=== PATIENT | male | born 1990 | race Caucasian/White ===

== ENCOUNTER → 2016-10-25 | Outpatient (CLI) | payer MEDICAID ==
[~2016-10-25] MED LIST: ALEV220T26 PO; CELE-19 PO; DICL75TA PO; GABA300C3 PO; HYDR1TAB97 PO; ROBA750T4 PO; TYLE325T5 PO; [UNRECOGNIZED DRUG - OTHER] PO
--- NOTE | 2016-10-27 23:20 | ECWPNPC ---
PATIENT NAME: GAVI LIGHT : 1990 GENDER: MALE VISIT DATE: 10/25/2016 DISCHARGE DATE: 10/25/16 1226 VISIT LOCKED DATE TIME: PHYSICIAN: RENETTA SHETH PHYSICIAN PAGER NO: [phone] RESOURCE: RENETTA SHETH REASON FOR APPOINTMENT 1. LOW BACK PAIN HISTORY OF PRESENT ILLNESS HISTORY OF PRESENT ILLNESS: PAIN THE PATIENT DESCRIBES THE PAIN... 26 YEAR OLD MALE PATIENT WITH HISTORY OF CHRONIC LOW BACK PAIN. PATIENT DESCRIBES THE PAIN . PATIENT RECEIVED A TRANSFORAMINAL ON 10/08/16 AND STATES THAT HE HAS ABOUT 50% RELIEF FOR ABOUT 10 DAYS BUT THE PAIN IS SLOWLY STARTING TO RETURN. PATIENT REPORTS DOING A LOT OF SHOVELING WHICH INCREASES THE PAIN IN HIS LOWER BACK. MR. LIGHT IS CURRENTLY USING TIZANIDINE WELL AT NIGHT FOR THE MUSCLE SPASMS WHICH HE STATES ONLY WORKS WHILE USING A PAIN MEDICATION. MR. LIGHT STATES THAT LAYING DOWN HELPS TO RELIEVE THE PAIN IN THE LOWER BACK. PATIENT DENIES UNEXPLAINABLE WEIGHT LOSS, FEVER, CHILLS, NEW CHANGES ON HIS URINARY OR BOWEL CONTROL. FALL RISK SCREENING: SCREENING :NO FALLS IN THE PAST YEAR CURRENT MEDICATIONS TAKING TIZANIDINE HCL 4 MG TABLET 1 TABLET NEEDED ORALLY FOR SPAMSM AND PAIN BEFORE BEDTIME CAN REPEAT IN 4 HRS MDD2, NOTES: 10-07-2016 2200 TAKING HYDROCODONE-ACETAMINOPHEN 7.5-325 MG TABLET 1 TABLET NEEDED ORALLY FOR PAIN EVERY 6 HRS NEEDED MDD4, NOTES: 10-08-16 1030 NOT-TAKING METHOCARBAMOL 750 MG TABLET 1-2 TABLET ORALLY EVERY 8 HRS FOR MUSCLE SPASM NOT-TAKING TYLENOL 325 MG TABLET 1 TABLET NEEDED ORALLY EVERY 6 HRS MEDICATION LIST REVIEWED AND RECONCILED WITH THE PATIENT PAST MEDICAL HISTORY BACK PAIN ALLERGIES N.K.D.A. SURGICAL HISTORY NONE FAMILY HISTORY NO FAMILY HISTORY DOCUMENTED. SOCIAL HISTORY TOBACCO USE ARE YOU A:CURRENT SMOKER HOW MANY CIGARETTES A DAY DO YOU SMOKE?6-10 HOW SOON AFTER YOU WAKE UP DO YOU SMOKE YOUR FIRST CIGARETTE?AFTER 60 MIN HOW OFTEN DO YOU SMOKE CIGARETTES?EVERY DAY PATIENT COUNSELED ON THE DANGERS OF TOBACCO USE AND URGED TO QUIT: PT COUNCELLED ON THE IMPORTANCE OF QUITTING. HE PLANS ON GETTING A NEW PCP AND DISCUSS OPTIONS WITH THIS PERSON ARE YOU INTERESTED IN QUITTING?THINKING ABOUT QUITTING LEARNING BARRIERS / SPECIAL NEEDS ORIENTED TO PLAN OF CARE: PATIENT, PAIN MANAGEMENT PATIENT, ORIENTED TO PLAN OF CARE: PATIENT, PAIN MANAGEMENT PATIENT. NEW PATIENT PAIN DIARY TODAY'S VISITNOTES FROM 0-10, WHAT LEVEL IS YOUR PAIN TODAY?0 PAIN CLINIC PFS, CLERGY, PUBLIC HEALTH REFERRALS PFS REFERRAL NEEDED?NO CLERGY REFERRAL NEEDED?NO PUBLIC HEALTH REFERRAL NEEDED?NO WAS THE PROVIDER NOTIFIED OF ANY PERTINENT INFO?NO PFS REFERRAL NEEDED?NO CLERGY REFERRAL NEEDED?NO PUBLIC HEALTH REFERRAL NEEDED?NO WAS THE PROVIDER NOTIFIED OF ANY PERTINENT INFO?NO HOSPITALIZATION/MAJOR DIAGNOSTIC PROCEDURE NO HOSPITALIZATION HISTORY. REVIEW OF SYSTEMS CONSTITUTIONAL: ANY CHANGE IN YOUR MEDICAL CONDITION? NO . CHILLS NO . FEVER NO . INFECTION: DO YOU HAVE NEW INFECTIONS? NO . DO YOU HAVE HISTORY OF MRSA? NO . MUSCULOSKELETAL: ANY NEW PATTERNS OF PAIN OR NUMBNESS? YES. PAIN HAS BEEN GETTING WORSE SINCE HE HAS BEEN SHOVELING AND RAN OUT OF PAIN MED. . GASTROENTEROLOGY: ANY NEW CHANGE IN BOWEL CONTROL? NO . GENITOURINARY: ANY NEW CHANGE IN BLADDER CONTROL? NO . IS THERE A CHANCE YOU COULD BE ? NO . HEMATOLOGY/LYMPH: DO YOU TAKE ANY BLOOD THINNERS? (FOR EXAMPLE- COUMADIN, PLAVIX, AGGRENOX, PLATEL, PRADAXA, OR XARELTO) NO . WHEN WAS YOUR LAST DOSE? DATE: TIME: . NEUROLOGY: HAVE YOU FALLEN IN THE PAST 6 MONTHS? YES,FELL APPROX. 1 MONTH AGO,SEEN IN ER , XRAY DONE. . ANY NEW EXTREMITY NUMBNESS OR WEAKNESS? NO . CARDIOLOGY: DO YOU HAVE A PACEMAKER OR DEFIBRILLATOR? NO . RESPIRATORY: HAVE YOU BEEN SICK IN THE PAST WEEK? YES, COUGHING DARK GREEN MUCUS X 1 WEEK. NO FEVER . FEVER NO . FLU LIKE SYMPTOMS? NO . COUGH YES, PRODUCTIVE MUCUS GREEN NO TREATMENT . INTEGUMENTARY: DO YOU HAVE ANY RASHES OR OPEN SORES? NO . ALLERGIC/IMMUNO: ARE YOU ALLERGIC TO SHELLFISH OR IV DYE? NO . ANY NEW ALLERGIES? NO . PSYCHIATRIC: DO YOU HAVE THOUGHTS OF HURTING YOURSELF OR SOMEONE ELSE? NO . ARE YOU ABUSED, NEGLECTED, OR IN AN UNSAFE ENVIRONMENT? NO . ENDOCRINOLOGY: ARE YOU DIABETIC? NO . OTHER: DO YOU NEED ANY PRESCRIPTIONS? YES, HYDROCODONE . IF YES, PLEASE LIST: ____ . ANY NEW PROBLEMS WITH YOUR MEDICATIONS? NO . WHEN DID YOU LAST EAT? ____ . WHEN DID YOU LAST DRINK? ____ . WHAT DID YOU LAST DRINK? ____ . NAME OF PERSON DRIVING YOU HOME? ____ . DO YOU HAVE ANY OTHER QUESTIONS OR CONCERNS HAD MIGRAINE FOR THE 1ST THREE DAYS AFTER THE LAST PROCEDURE. . REVIEWED BY: PROVIDER: RENETTA SHETH MD . VITAL SIGNS WT 240 LBS, HT 71 1/2, BMI 33.00 INDEX, BP 137/71 MM HG, HR 78 /MIN, RR 16 /MIN, TEMP 96.8 F, OXYGEN SAT % 96, NA INITIALS TL 1039. EXAMINATION : PATIENT IS ALERT O X 3 AND COOPERATIVE. PATIENT AMBULATES WITH AN ANTALGIC GAIT. PATIENT IS VERY STIFF AND GUARDS HIS BACK. LEG LEFT IS WEAKER IN STRENGTH, FLEXION AND EXTENSION. TENDERNESS IN THE LUMBAR PARASPINAL MUSCLE GROUP. TENDERNESS IN THE SACROILIAC PARASPINAL MUSCLE GROUP. BANDS OF TISSUE, RESTRICTION OF MOVEMENT, AND PRESENCE OF TRIGGER POINTS AT THE LOWER BACK AREA. MRI OF THE LUMBAR SPINE DONE ON 08-23-2016 SHOWS A LARGE CENTRAL DISC PROTRUSION AT L5-S1 AND A TINY CENTRAL DISC PROTRUSION AT L4-L5. 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 CLINICAL NOTES: PRINTED INFORMATION GIVEN ON CYMBALTA AND GABAPENTIN. OTHERS NOTES: WE DISCUSSED SEVERAL ISSUES WITH MR. LIGHT'S PAIN MANAGEMENT CASE. AT THIS TIME THE PATIENT WILL START GABAPENTIN AT NIGHT TO HELP WITH NEUROPATHIC PAIN. PATIENT WILL ALSO START TO USE CYMBALTA FOR PAIN MANAGEMENT WELL. WE DISCUSSED THE PATIENT URINE TOXICOLOGY REPORT TODAY AND AT THIS TIME NARCOTICS WILL NOT BE PRESCRIBED. PATIENT DID BRING TIZANIDINE IN ITS ORIGINAL BOTTLE TO TODAY'S VISIT. WE DISCUSSED INTERVENTIONS THAT MAY HELP THE PATIENT. DUE TO THE RESTRICTION OF MOVEMENT AND PRESENCE OF TRIGGER POINTS IN THE LOWER BACK THE PATIENT MAY BENEFIT FROM A TRIGGER POINT INJECTION. IF THE TRIGGER POINT INJECTION DOES NOT GIVE ADEQUATE RELIEF THE PATIENT IS ALSO A GOOD CANDIDATE FOR A LUMBAR FACET DIAGNOSTIC BLOCK TO CONSIDER RADIOFREQUENCY. WE DISCUSSED THE RISKS, BENEFITS, AND ALTERNATIVES TO THE TRIGGER POINT INJECTIONS AND THE PATIENT WOULD LIKE TO PROCEED AT THIS TIME. INSTRUCTIONS WERE GIVEN, QUESTIONS WERE ANSWERED, PATIENT REPORTS UNDERSTANDING AND AGREES WITH THE PLAN. I, FRANCA HENDRICKS, DOCUMENTED THE ABOVE INFORMATION ACTING A SCRIBE FOR DR. SHETH. I HAVE REVIEWED THE ABOVE DOCUMENT, WRITTEN BY FRANCA PEDRAZA AND I VERIFY THAT IT IS ACCURATE. PROCEDURE CODES FA211 ESTABILISHED PATIENT [facility] FACILITY CHARGE G8427 DOC MEDS VERIFIED W/PT OR RE G8730 PAIN ASSESS POS TOOL F/U PLAN DOC FOLLOW UP TPI AFTER APPROVAL ELECTRONICALLY SIGNED BY RENETTA SHETH MD ON 10/27/2016 AT 09:03 AM EST DISCLAIMER : THIS IS A VISIT SUMMARY EXTRACTED FROM THE [employer] CHART. IT IS NOT A COPY OF THE [employer] PROGRESS NOTE. CORETTA
== END ==
LOC: M PAIN 10:40
PROVIDERS: ATTEND Anesthesiology
DX: M79.1 Myalgia (principal); M51.17 Intervertebral disc disorders with radiculopathy, lumbosacral region; M47.816 Spondylosis without myelopathy or radiculopathy, lumbar region; M47.817 Spondylosis without myelopathy or radiculopathy, lumbosacral region; Z79.891 Long term (current) use of opiate analgesic; F17.210 Nicotine dependence, cigarettes, uncomplicated

== ENCOUNTER 2016-11-03 11:51 | Emergency (ER) | payer MEDICAID ==
--- NOTE | 2016-11-03 14:40 | EDDOCDS ---
Physician Documentation [facility] Name: Jordin Dodson Age: 26 yrs Sex: Male : 1990 Arrival Date: 11/03/2016 Time: 11:51 Bed PD Private MD: Hamlet Tidwell W Disposition: 11/03/16 14:31 Discharged to Home/Self Care. Impression: Cutaneous abscess of abdominal wall - 1.3 CM, Encounter for issue of repeat prescription. - Condition is Stable. - Discharge Instructions: Abscess, Medicine Refill at the Emergency Department. - Prescriptions for Hydrocodone- Acetaminophen 5-325 mg Oral Tablet - take 1 tablet by ORAL route every 6 hours As needed MDD: 4 tabs; 16 tablet. Doxycycline Monohydrate 100 mg Oral Tablet - take 1 tablet by ORAL route every 12 hours for 10 days; 20 tablet. - Medication Reconciliation, Local Pharmacy Hours form. - Follow up: Emergency Department; When: As needed. Follow up: Hamlet Tidwell; When: Call to arrange an appointment; Reason: Wound/Symptom Recheck, Recheck today's complaints, Worsening of conditions, Continuance of care. - Problem is an ongoing problem. - Symptoms are unchanged. Historical: - Allergies: No known drug Allergies; - Home Meds: 1. tizanidine 4 mg oral tab twice a day 2. gabapentin 300 mg Oral cap daily - PMHx: Low back pain; ruptured disc L3-5; - PSHx: none; - Social history: Smoking status: Patient uses tobacco products, light tobacco smoker. No barriers to communication noted, The patient speaks fluent Lao, Speaks appropriately for age. - Family history: Not pertinent. - : The pt / caregiver states he / she is not on anticoagulants. Home medication list is obtained from the patient. - Exposure Risk Screening:: None identified. Vital Signs: 11/03 11:53 BP 121 / 79; Pulse 74; Resp 18 S; Temp 98.6(O); Pulse Ox 99% on R/A; Weight 104.33 kg / gr2 230.01 lbs (R); Height 6 ft. 1 in. (185.42 cm) (R); Pain 8/10; 14:34 BP 155 / 84 RA Sitting (auto/lg); Pulse 57; Resp 18; Temp 96.6(T); Pulse Ox 100% on rs6 R/A; Pain 06/26; 11:53 Body Mass Index 30.34 (104.33 kg, 185.42 cm) gr2 MDM: 13:15 US Abd Limited: suprapubic area Ordered. EDMS 14:11 Financial registration complete. lg Signatures: Dispatcher [employer] EDMS Emilie Kinney, Reg Reg lg Chelle MaRN RN ck1 Aditi Childs RN RN cj Vincent Cassidy, PA-C PA-C cc10 MTDD
--- NOTE | 2016-11-03 14:40 | EDDOCDS ---
Nurse's Notes [facility] Name: Jordin Dodson Age: 26 yrs Sex: Male : 1990 Arrival Date: 11/03/2016 Time: 11:51 Bed PD Private MD: Hamlet Tidwell W Diagnosis: Cutaneous abscess of abdominal wall-1.3 CM;Encounter for issue of repeat prescription Presentation: 11/03 11:56 Presenting complaint: Patient states: Sent from pain clinic for "lesion on his ck1 stomach". Was due for trigger point injection today, but pain clinic would not do it until he had the "lesion" looked at. Acute neurological deficits are not present. Mechanism of Injury: No Mechanism of Injury. Adult Sepsis Screening: Adult Sepsis Screening: The patient does not have new or worsening altered mentation. Patient's respiratory rate is less than 22. Systolic blood pressure is greater than 100. Patient has a qSOFA score of 0- Negative Sepsis Screen. Suicide/Homicide risk assessment- the patient denies having any suicidal and/or homicidal ideations and does not present with any other emotional, behavioral or mental health complaints. Status: Patient is not a resident services manager or dependent. Transition of care: patient was not received from another setting of care. 11:56 Acuity: PANCHO Level 4 ck1 11:56 Method Of Arrival: Walkin/Carried/Asstd ck1 Triage Assessment: 11:59 General: Appears in no apparent distress, comfortable, Behavior is appropriate for age, ck1 cooperative. 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 The patient's pain management provider is Dr. Pena Location: low back area Pain currently is 9 out of 10 on a pain scale. HIV screening NA for this visit Offered previously. Respiratory: Respiratory effort is unlabored, Respiratory pattern is regular, symmetrical. Derm: Skin is healthy with good turgor, Skin is normal. Musculoskeletal: Circulation, motion, and sensation intact Range of motion intact in all extremities. Historical: - Allergies: No known drug Allergies; - Home Meds: 1. tizanidine 4 mg oral tab twice a day 2. gabapentin 300 mg Oral cap daily - PMHx: Low back pain; ruptured disc L3-5; - PSHx: none; - Social history: Smoking status: Patient uses tobacco products, light tobacco smoker. No barriers to communication noted, The patient speaks fluent Panamanian, Speaks appropriately for age. - Family history: Not pertinent. - : The pt / caregiver states he / she is not on anticoagulants. Home medication list is obtained from the patient. - Exposure Risk Screening:: None identified. Screenin:36 Screening information is obtained from the patient. Fall risk: No risks identified. [place] Assistance ADL's: requires no assistance with activities of daily living. Abuse/DV Screen: The patient / caregiver reports he/she is: not in a situation that causes fear, pain or injury. Nutritional screening: No deficits noted. Advance Directives: There is no active DNR order. home support is adequate. Assessment: 14:36 General: Appears in no apparent distress, comfortable, Behavior is appropriate for age, h cooperative, reviewed discharge instructions, encouraged and answered questions, denies further needs, declines additional assistance. General: assessed by PA. Neurological: Level of Consciousness is awake, alert, Oriented to person, place, none. Respiratory: Airway is patent Respiratory effort is even, unlabored, Respiratory pattern is regular, symmetrical. Derm: Skin is pink, warm & dry. Musculoskeletal: Range of motion intact in all extremities. Vital Signs: 11:53 BP 121 / 79; Pulse 74; Resp 18 S; Temp 98.6(O); Pulse Ox 99% on R/A; Weight 104.33 kg gr2 (R); Height 6 ft. 1 in. (185.42 cm) (R); Pain 8/10; 14:34 BP 155 / 84 RA Sitting (auto/lg); Pulse 57; Resp 18; Temp 96.6(T); Pulse Ox 100% on rs6 R/A; Pain 9/10; 11:53 Body Mass Index 30.34 (104.33 kg, 185.42 cm) gr2 Vitals: 11:53 Log In Time: November 03, 2016 at 11:53. gr2 ED Course: 11:52 Patient visited by Douglas Joshi. gr2 11:52 Patient moved to Waiting gr2 11:53 Hamlet Tidwell is Private Physician. gr2 11:54 Patient visited by Douglas Joshi. gr2 11:54 Patient moved to Pre RCE gr2 11:58 Triage Initiated ck1 12:36 Patient moved to Triage 1 ck1 12:37 Patient visited by Chelle Ma,GILBERTO. ck1 13:04 [facility] cc10 13:04 Abiel Dhillon MD is Attending Physician. cc10 13:10 Patient visited by Vincent Cassidy PA-C. cc10 13:10 Patient visited by Vincent Cassidy PA-C. cc10 13:20 Patient moved to TR1 rs6 13:43 Patient moved to Ultrasound rs6 13:55 Patient moved to TR2 jrd 14:26 Patient moved to PD2 / 27 mlb1 14:30 Hamlet Tidwell is Referral Physician. cc10 14:34 Patient visited by Carrol Brito PCA. rs6 14:36 The patient / caregiver is instructed regarding the plan of care and ED course. [place] 14:36 No IV's were initiated during this patient's visit. No procedures done that require [place] assistance. Order Results: There are currently no results for this order. Outcome: 14:31 Discharge ordered by Provider. cc 14:36 Discharge Assessment: Patient awake, alert and oriented x 3. No cognitive and/or [place] functional deficits noted. Patient verbalized understanding of disposition instructions. patient administered narcotics - no. The following High Risk Discharge criteria are identified: None. Discharged to home ambulatory. Condition: good Condition: stable Condition: improved. Discharge instructions given to patient, Instructed on discharge instructions, follow up and referral plans. medication usage, Demonstrated understanding of instructions, medications, Pt was receptive of discharge instructions/ teaching. Prescriptions given X 2. Ultrasound Study completed. Property :Personal belongings accompany Pt. 14:39 Patient left the ED. [place] Signatures: Ck Gomez RN RN mlb1 Chelle Ma,RN RN ck1 Aidti ChildsRN RN [place] Douglas Joshi 2 Vincent Cassidy PA-C PA-C cc10 [place] Metzger, COMMUNICATION ARTS LECTURER COMMUNICATION ARTS LECTURER jrd Carrol Brito PCA COMMUNICATION ARTS LECTURER rs6 MTDD
--- NOTE | 2016-11-03 15:00 | REP ---
SOFT-TISSUE ABDOMINAL WALL ULTRASOUND: Limited study. HISTORY: Question abscess. FINDINGS: Scanning is performed in the area in question 4 cm inferior to the umbilicus where the patient feels a lump. A 2.6 x 1.0 x 1.6 cm hypoechoic lesion is seen with enhanced through transmission just beneath the dermis. Adjacent to this is a 1.2 x 0.6 x 1.3 cm hypoechoic area which did not appear to connect to the other air lesion. The 2.6 cm area and is suggestive of a sebaceous cyst possibly infected. The subcutaneous fluid collection nearby may be a developing abscess. IMPRESSION: Findings suggestive of infected sebaceous cyst with adjacent 1.3 cm fluid collection, which may be a developing abscess. Signed by Michele Galicia MD 11/03/2016 08:13 P
--- NOTE | 2016-11-05 15:40 | EDDOCDS ---
Physician Documentation [facility] Name: Jordin Dodson Age: 26 yrs Sex: Male : 1990 Arrival Date: 11/03/2016 Time: 11:51 Bed PD Private MD: Hamlet Tidwell W Disposition: 11/03/16 14:31 Discharged to Home/Self Care. Impression: Cutaneous abscess of abdominal wall - 1.3 CM, Encounter for issue of repeat prescription. - Condition is Stable. - Discharge Instructions: Abscess, Medicine Refill at the Emergency Department. - Prescriptions for Hydrocodone- Acetaminophen 5-325 mg Oral Tablet - take 1 tablet by ORAL route every 6 hours As needed MDD: 4 tabs; 16 tablet. Doxycycline Monohydrate 100 mg Oral Tablet - take 1 tablet by ORAL route every 12 hours for 10 days; 20 tablet. - Medication Reconciliation, Local Pharmacy Hours form. - Follow up: Emergency Department; When: As needed. Follow up: Hamlet Tidwell; When: Call to arrange an appointment; Reason: Wound/Symptom Recheck, Recheck today's complaints, Worsening of conditions, Continuance of care. - Problem is an ongoing problem. - Symptoms are unchanged. Historical: - Allergies: No known drug Allergies; - Home Meds: 1. tizanidine 4 mg oral tab twice a day 2. gabapentin 300 mg Oral cap daily - PMHx: Low back pain; ruptured disc L3-5; - PSHx: none; - Social history: Smoking status: Patient uses tobacco products, light tobacco smoker. No barriers to communication noted, The patient speaks fluent Tunisian, Speaks appropriately for age. - Family history: Not pertinent. - : The pt / caregiver states he / she is not on anticoagulants. Home medication list is obtained from the patient. - Exposure Risk Screening:: None identified. Vital Signs: 11/03 11:53 BP 121 / 79; Pulse 74; Resp 18 S; Temp 98.6(O); Pulse Ox 99% on R/A; Weight 104.33 kg / gr2 230.01 lbs (R); Height 6 ft. 1 in. (185.42 cm) (R); Pain 8/10; 14:34 BP 155 / 84 RA Sitting (auto/lg); Pulse 57; Resp 18; Temp 96.6(T); Pulse Ox 100% on rs6 R/A; Pain 06/26; 11:53 Body Mass Index 30.34 (104.33 kg, 185.42 cm) gr2 MDM: 13:15 US Abd Limited: suprapubic area Ordered. EDMS 14:11 Financial registration complete. lg 15:11 T-Sheet-- Draft Copy was scanned into [employer] and attached to record. gb 15:28 [facility] Payment Agreement was scanned into [employer] and attached to record. lg Signatures: Dispatcher [employer] EDMS Corry Perrin, Reg Reg gb Emilie Kinney, Reg Reg lg Chelle MaRN RN ck1 Aditi ChildsRN RN cj Vincent Cassidy PA-C PAKelsieC cc10 The chart was reviewed and I authenticate all verbal orders and agree with the evaluation and treatment provided.Attachments: 15:11 T-Sheet-- Draft Copy gb 15:28 [facility] Payment Agreement lg Chart Complete MTDD
--- NOTE | 2016-11-05 15:40 | EDDOCDS ---
Nurse's Notes [facility] Name: Jordin Dodson Age: 26 yrs Sex: Male : 1990 Arrival Date: 11/03/2016 Time: 11:51 Bed PD Private MD: Hamlet Tidwell W Diagnosis: Cutaneous abscess of abdominal wall-1.3 CM;Encounter for issue of repeat prescription Presentation: 11/03 11:56 Presenting complaint: Patient states: Sent from pain clinic for "lesion on his ck1 stomach". Was due for trigger point injection today, but pain clinic would not do it until he had the "lesion" looked at. Acute neurological deficits are not present. Mechanism of Injury: No Mechanism of Injury. Adult Sepsis Screening: Adult Sepsis Screening: The patient does not have new or worsening altered mentation. Patient's respiratory rate is less than 22. Systolic blood pressure is greater than 100. Patient has a qSOFA score of 0- Negative Sepsis Screen. Suicide/Homicide risk assessment- the patient denies having any suicidal and/or homicidal ideations and does not present with any other emotional, behavioral or mental health complaints. Status: Patient is not a pharmacy services director or dependent. Transition of care: patient was not received from another setting of care. 11:56 Acuity: PANCHO Level 4 ck1 11:56 Method Of Arrival: Walkin/Carried/Asstd ck1 Triage Assessment: 11:59 General: Appears in no apparent distress, comfortable, Behavior is appropriate for age, ck1 cooperative. 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 The patient's pain management provider is Dr. Pena Location: low back area Pain currently is 9 out of 10 on a pain scale. HIV screening NA for this visit Offered previously. Respiratory: Respiratory effort is unlabored, Respiratory pattern is regular, symmetrical. Derm: Skin is healthy with good turgor, Skin is normal. Musculoskeletal: Circulation, motion, and sensation intact Range of motion intact in all extremities. Historical: - Allergies: No known drug Allergies; - Home Meds: 1. tizanidine 4 mg oral tab twice a day 2. gabapentin 300 mg Oral cap daily - PMHx: Low back pain; ruptured disc L3-5; - PSHx: none; - Social history: Smoking status: Patient uses tobacco products, light tobacco smoker. No barriers to communication noted, The patient speaks fluent Djiboutian, Speaks appropriately for age. - Family history: Not pertinent. - : The pt / caregiver states he / she is not on anticoagulants. Home medication list is obtained from the patient. - Exposure Risk Screening:: None identified. Screenin:36 Screening information is obtained from the patient. Fall risk: No risks identified. [facility] Assistance ADL's: requires no assistance with activities of daily living. Abuse/DV Screen: The patient / caregiver reports he/she is: not in a situation that causes fear, pain or injury. Nutritional screening: No deficits noted. Advance Directives: There is no active DNR order. home support is adequate. Assessment: 14:36 General: Appears in no apparent distress, comfortable, Behavior is appropriate for age, h cooperative, reviewed discharge instructions, encouraged and answered questions, denies further needs, declines additional assistance. General: assessed by PA. Neurological: Level of Consciousness is awake, alert, Oriented to person, place, none. Respiratory: Airway is patent Respiratory effort is even, unlabored, Respiratory pattern is regular, symmetrical. Derm: Skin is pink, warm & dry. Musculoskeletal: Range of motion intact in all extremities. Vital Signs: 11:53 BP 121 / 79; Pulse 74; Resp 18 S; Temp 98.6(O); Pulse Ox 99% on R/A; Weight 104.33 kg gr2 (R); Height 6 ft. 1 in. (185.42 cm) (R); Pain 8/10; 14:34 BP 155 / 84 RA Sitting (auto/lg); Pulse 57; Resp 18; Temp 96.6(T); Pulse Ox 100% on rs6 R/A; Pain 9/10; 11:53 Body Mass Index 30.34 (104.33 kg, 185.42 cm) gr2 Vitals: 11:53 Log In Time: November 03, 2016 at 11:53. gr2 ED Course: 11:52 Patient visited by Douglas Joshi. gr2 11:52 Patient moved to Waiting gr2 11:53 Hamlet Tidwell is Private Physician. gr2 11:54 Patient visited by Douglas Joshi. gr2 11:54 Patient moved to Pre RCE gr2 11:58 Triage Initiated ck1 12:36 Patient moved to Triage 1 ck1 12:37 Patient visited by Chelle Ma RN. ck1 13:04 [facility] cc10 13:04 Abiel Dhillon MD is Attending Physician. cc10 13:10 Patient visited by Vincent Cassidy PA-C. cc10 13:10 Patient visited by Vincent Cassidy PA-C. cc10 13:20 Patient moved to TR1 rs6 13:43 Patient moved to Ultrasound rs6 13:55 Patient moved to TR2 jrd 14:26 Patient moved to PD2 / 27 mlb1 14:30 Hamlet Tidwell is Referral Physician. cc10 14:34 Patient visited by Carrol Brito PCA. rs6 14:36 The patient / caregiver is instructed regarding the plan of care and ED course. [facility] 14:36 No IV's were initiated during this patient's visit. No procedures done that require [facility] assistance. 15:11 T-Sheet-- Draft Copy was scanned into [employer] and attached to record. gb 15:28 [facility] Payment Agreement was scanned into [employer] and attached to record. lg 15:54 US Abd Limited: suprapubic area Returned. EDMS Order Results: Radiology Order: US Abd Limited: suprapubic area Test: US Abd Limited: suprapubic area REASON FOR EXAMINATION: r/o abscess; SOFT-TISSUE ABDOMINAL WALL ULTRASOUND: Limited study.; ; HISTORY: Question abscess.; ; FINDINGS: Scanning is performed in the area in question 4 cm inferior to the; umbilicus where the patient feels a lump. A 2.6 x 1.0 x 1.6 cm hypoechoic lesion; is seen with enhanced through transmission just beneath the dermis. Adjacent to; this is a 1.2 x 0.6 x 1.3 cm hypoechoic area which did not appear to connect to; the other air lesion. The 2.6 cm area and is suggestive of a sebaceous cyst; possibly infected. The subcutaneous fluid collection nearby may be a developing; abscess.; ; IMPRESSION: Findings suggestive of infected sebaceous cyst with adjacent 1.3 cm; fluid collection, which may be a developing abscess.; ; ; Signed by; Michele Galicia MD 11/03/2016 08:13 P; Outcome: 14:31 Discharge ordered by Provider. cc10 14:36 Discharge Assessment: Patient awake, alert and oriented x 3. No cognitive and/or [facility] functional deficits noted. Patient verbalized understanding of disposition instructions. patient administered narcotics - no. The following High Risk Discharge criteria are identified: None. Discharged to home ambulatory. Condition: good Condition: stable Condition: improved. Discharge instructions given to patient, Instructed on discharge instructions, follow up and referral plans. medication usage, Demonstrated understanding of instructions, medications, Pt was receptive of discharge instructions/ teaching. Prescriptions given X 2. Ultrasound Study completed. Property :Personal belongings accompany Pt. 14:39 Patient left the ED. [facility] Signatures: Dispatcher [employer] EDMS Corry Perrin, Reg Reg gb Emilie Kinney, Reg Reg lg Ck Gomez RN RN mlb1 Chelle MaRN RN ck1 Aditi ChildsRN RN [facility] Douglas Joshi gr2 Vincent Cassidy, PA-C PA-C cc10 Salinas Metzger, WEB PRODUCTION ASSISTANT WEB PRODUCTION ASSISTANT jrd Carrol Brito, WEB PRODUCTION ASSISTANT WEB PRODUCTION ASSISTANT rs6 Chart Complete [facility]
--- NOTE | 2016-11-05 15:40 | EDDOCDS ---
Physician Documentation [facility] Name: Jordin Dodson Age: 26 yrs Sex: Male : 1990 Arrival Date: 11/03/2016 Time: 11:51 Bed PD Private MD: Hamlet Tidwell W Disposition: 11/03/16 14:31 Discharged to Home/Self Care. Impression: Cutaneous abscess of abdominal wall - 1.3 CM, Encounter for issue of repeat prescription. - Condition is Stable. - Discharge Instructions: Abscess, Medicine Refill at the Emergency Department. - Prescriptions for Hydrocodone- Acetaminophen 5-325 mg Oral Tablet - take 1 tablet by ORAL route every 6 hours As needed MDD: 4 tabs; 16 tablet. Doxycycline Monohydrate 100 mg Oral Tablet - take 1 tablet by ORAL route every 12 hours for 10 days; 20 tablet. - Medication Reconciliation, Local Pharmacy Hours form. - Follow up: Emergency Department; When: As needed. Follow up: Hamlet Tidwell; When: Call to arrange an appointment; Reason: Wound/Symptom Recheck, Recheck today's complaints, Worsening of conditions, Continuance of care. - Problem is an ongoing problem. - Symptoms are unchanged. Historical: - Allergies: No known drug Allergies; - Home Meds: 1. tizanidine 4 mg oral tab twice a day 2. gabapentin 300 mg Oral cap daily - PMHx: Low back pain; ruptured disc L3-5; - PSHx: none; - Social history: Smoking status: Patient uses tobacco products, light tobacco smoker. No barriers to communication noted, The patient speaks fluent Barbadian, Speaks appropriately for age. - Family history: Not pertinent. - : The pt / caregiver states he / she is not on anticoagulants. Home medication list is obtained from the patient. - Exposure Risk Screening:: None identified. Vital Signs: 11/03 11:53 BP 121 / 79; Pulse 74; Resp 18 S; Temp 98.6(O); Pulse Ox 99% on R/A; Weight 104.33 kg / gr2 230.01 lbs (R); Height 6 ft. 1 in. (185.42 cm) (R); Pain 8/10; 14:34 BP 155 / 84 RA Sitting (auto/lg); Pulse 57; Resp 18; Temp 96.6(T); Pulse Ox 100% on rs6 R/A; Pain 06/26; 11:53 Body Mass Index 30.34 (104.33 kg, 185.42 cm) gr2 MDM: 13:15 US Abd Limited: suprapubic area Ordered. EDMS 14:11 Financial registration complete. lg 15:11 T-Sheet-- Draft Copy was scanned into MED[employer] and attached to record. gb 15:28 [facility] Payment Agreement was scanned into [employer] and attached to record. lg Signatures: Dispatcher [employer] EDMS Corry Perrin, Reg Reg gb Emilie Kinney, Reg Reg lg Chelle MaRN RN ck1 Aditi ChildsRN RN cj Vincent Cassidy PA-C PAKelsieC cc10 The chart was reviewed and I authenticate all verbal orders and agree with the evaluation and treatment provided.Attachments: 15:11 T-Sheet-- Draft Copy gb 15:28 [facility] Payment Agreement lg Chart Complete MTDD
== END 2016-11-03 14:39 | disposition home or self-care (01) ==
LOC: M ED 11:51
DX: Z76.0 Encounter for issue of repeat prescription (principal); L02.211 Cutaneous abscess of abdominal wall; M51.27 Other intervertebral disc displacement, lumbosacral region; F17.210 Nicotine dependence, cigarettes, uncomplicated; Z79.899 Other long term (current) drug therapy

== ENCOUNTER → 2016-11-03 | Outpatient (CLI) | payer MEDICAID ==
[~2016-11-03] MED LIST changes: +HYDR-3713 PO; -HYDR1TAB97 PO
--- NOTE | 2016-11-03 23:57 | ECWPNPC ---
PATIENT NAME: GAVI LIGHT : 1990 GENDER: MALE VISIT DATE: 11/03/2016 DISCHARGE DATE: 11/03/16 1205 VISIT LOCKED DATE TIME: PHYSICIAN: RENETTA SHETH PHYSICIAN PAGER NO: [phone] RESOURCE: RENETTA SHETH REASON FOR APPOINTMENT 1. LOW BACK PAIN HISTORY OF PRESENT ILLNESS HISTORY OF PRESENT ILLNESS: PAIN THE PATIENT DESCRIBES THE PAIN... 26 YEAR OLD MALE PATIENT WITH HISTORY OF CHRONIC LOW BACK PAIN. PATIENT DESCRIBES THE PAIN ACHING, SORE, AND HAVING IT ALL THE TIME WITH A PAIN SCORE OF 8/10. PATIENT WAS SUPPOSE TO RECEIVE AN INJECTION TODAY BUT HAS A LESION ON HIS ABDOMEN. PATIENT IS CURRENTLY USING HYDROCODONE, TIZANIDINE, AND GABAPENTIN WHICH HE STATES DOES HELP TO TAKE THE EDGE OFF. PATIENT DENIES UNEXPLAINABLE WEIGHT LOSS, FEVER, CHILLS, NEW CHANGES ON HIS URINARY OR BOWEL CONTROL. FALL RISK SCREENING: SCREENING :NO FALLS IN THE PAST YEAR CURRENT MEDICATIONS TAKING HYDROCODONE-ACETAMINOPHEN 7.5-325 MG TABLET 1 TABLET NEEDED ORALLY FOR PAIN EVERY 6 HRS NEEDED MDD4, NOTES: 10-08-16 1030 TAKING TIZANIDINE HCL 4 MG CAPSULE 1 TABLET NEEDED ORALLY BEFORE BEDTIME CAN REPEAT IN 4 HRS MDD2, NOTES: 10-07-2016 2200 TAKING GABAPENTIN 300 MG CAPSULE 1 CAPSULE ORALLY BEFORE BEDTIME FOR PAIN TAKING CYMBALTA 30 MG CAPSULE DELAYED RELEASE PARTICLES 1 CAPSULE ORALLY WITH FOOD TWICE A DAY FOR PAIN NOT-TAKING METHOCARBAMOL 750 MG TABLET 1-2 TABLET ORALLY EVERY 8 HRS FOR MUSCLE SPASM NOT-TAKING TYLENOL 325 MG TABLET 1 TABLET NEEDED ORALLY EVERY 6 HRS MEDICATION LIST REVIEWED AND RECONCILED WITH THE PATIENT PAST MEDICAL HISTORY BACK PAIN ALLERGIES N.K.D.A. SURGICAL HISTORY NONE FAMILY HISTORY NO FAMILY HISTORY DOCUMENTED. SOCIAL HISTORY GENERAL: TOBACCO USE ARE YOU A:NONSMOKER LEARNING BARRIERS / SPECIAL NEEDS ORIENTED TO PLAN OF CARE: PATIENT, PAIN MANAGEMENT PATIENT, ORIENTED TO PLAN OF CARE: PATIENT, PAIN MANAGEMENT PATIENT. NEW PATIENT PAIN DIARY TODAY'S VISITNOTES FROM 0-10, WHAT LEVEL IS YOUR PAIN TODAY?0 PAIN CLINIC PFS, CLERGY, PUBLIC HEALTH REFERRALS PFS REFERRAL NEEDED?NO CLERGY REFERRAL NEEDED?NO PUBLIC HEALTH REFERRAL NEEDED?NO WAS THE PROVIDER NOTIFIED OF ANY PERTINENT INFO?NO PFS REFERRAL NEEDED?NO CLERGY REFERRAL NEEDED?NO PUBLIC HEALTH REFERRAL NEEDED?NO WAS THE PROVIDER NOTIFIED OF ANY PERTINENT INFO?NO HOSPITALIZATION/MAJOR DIAGNOSTIC PROCEDURE NO HOSPITALIZATION HISTORY. REVIEW OF SYSTEMS CONSTITUTIONAL: ANY CHANGE IN YOUR MEDICAL CONDITION? NO . CHILLS NO . FEVER NO . INFECTION: DO YOU HAVE NEW INFECTIONS? NO . DO YOU HAVE HISTORY OF MRSA? NO . MUSCULOSKELETAL: ANY NEW PATTERNS OF PAIN OR NUMBNESS? NO . GASTROENTEROLOGY: ANY NEW CHANGE IN BOWEL CONTROL? NO . GENITOURINARY: ANY NEW CHANGE IN BLADDER CONTROL? NO . IS THERE A CHANCE YOU COULD BE ? NO . HEMATOLOGY/LYMPH: DO YOU TAKE ANY BLOOD THINNERS? (FOR EXAMPLE- COUMADIN, PLAVIX, AGGRENOX, PLATEL, PRADAXA, OR XARELTO) NO . WHEN WAS YOUR LAST DOSE? DATE: TIME: . NEUROLOGY: HAVE YOU FALLEN IN THE PAST 6 MONTHS? NO . ANY NEW EXTREMITY NUMBNESS OR WEAKNESS? NO . CARDIOLOGY: DO YOU HAVE A PACEMAKER OR DEFIBRILLATOR? NO . RESPIRATORY: HAVE YOU BEEN SICK IN THE PAST WEEK? NO . FEVER NO . FLU LIKE SYMPTOMS? NO . COUGH NO . INTEGUMENTARY: DO YOU HAVE ANY RASHES OR OPEN SORES? NO . ALLERGIC/IMMUNO: ARE YOU ALLERGIC TO SHELLFISH OR IV DYE? NO . ANY NEW ALLERGIES? NO . PSYCHIATRIC: DO YOU HAVE THOUGHTS OF HURTING YOURSELF OR SOMEONE ELSE? NO . ARE YOU ABUSED, NEGLECTED, OR IN AN UNSAFE ENVIRONMENT? NO . ENDOCRINOLOGY: ARE YOU DIABETIC? NO . OTHER: DO YOU NEED ANY PRESCRIPTIONS? NO . IF YES, PLEASE LIST: ____ . ANY NEW PROBLEMS WITH YOUR MEDICATIONS? NO . WHEN DID YOU LAST EAT? LAST NIGHT . WHEN DID YOU LAST DRINK? 0845 . WHAT DID YOU LAST DRINK? APPLE JUICE . NAME OF PERSON DRIVING YOU HOME? LINZI . DO YOU HAVE ANY OTHER QUESTIONS OR CONCERNS NO . REVIEWED BY: PROVIDER: RENETTA SHETH MD . VITAL SIGNS WT 230 LBS, HT 71 1/2, BMI 31.63 INDEX, BP 134/72 MM HG, HR 63 /MIN, RR 16 /MIN, TEMP 96.6 F, OXYGEN SAT % 96, NA INITIALS TL 1107. EXAMINATION : PATIENT IS ALERT O X 3 AND COOPERATIVE. PATIENT AMBULATES WITH AN ANTALGIC GAIT. PATIENT IS VERY STIFF AND GUARDS HIS BACK. LEG LEFT IS WEAKER IN STRENGTH, FLEXION AND EXTENSION. TENDERNESS IN THE LUMBAR PARASPINAL MUSCLE GROUP. TENDERNESS IN THE SACROILIAC PARASPINAL MUSCLE GROUP. BANDS OF TISSUE, RESTRICTION OF MOVEMENT, AND PRESENCE OF TRIGGER POINTS AT THE LOWER BACK AREA. MRI OF THE LUMBAR SPINE DONE ON 08-23-2016 SHOWS A LARGE CENTRAL DISC PROTRUSION AT L5-S1 AND A TINY CENTRAL DISC PROTRUSION AT L4-L5. ASSESSMENTS MYALGIA - M79.1 (PRIMARY) SPONDYLOSIS WITHOUT MYELOPATHY OR RADICULOPATHY, LUMBAR REGION - M47.816 SPONDYLOSIS WITHOUT MYELOPATHY OR RADICULOPATHY, LUMBOSACRAL REGION - M47.817 TREATMENT MYALGIA NOTES: WE DISCUSSED SEVERAL ISSUES WITH MR. LIGHT'S PAIN MANAGEMENT CASE. AT THIS TIME THE PATIENT WILL CONTINUE WITH THE SAME MEDICATION MANAGEMENT BEFORE. PATIENT DENIES ABUSE OF MEDICATION, DENIES USE OF ILLEGAL SUBSTANCES, AND STATES THAT HE IS ONLY USING THE MEDICATION FOR PAIN MANAGEMENT. PATIENT WAS REFERRED TO THE ER FOR THE LESION ON HIS ABDOMEN. PATIENT WILL RETURN TO THE CLINIC IN A WEEK AND A HALF FOR THE TRIGGER POINT INJECTIONS LONG THE LESION IS CLEARED. INSTRUCTIONS WERE GIVEN, QUESTIONS WERE ANSWERED, PATIENT REPORTS UNDERSTANDING AND AGREES WITH THE PLAN. I, FRANCA HENDRICKS, DOCUMENTED THE ABOVE INFORMATION ACTING A SCRIBE FOR DR. SHETH. I HAVE REVIEWED THE ABOVE DOCUMENT, WRITTEN BY FRANCA PEDRAZA AND I VERIFY THAT IT IS ACCURATE. PROCEDURE CODES G8427 DOC MEDS VERIFIED W/PT OR RE G8730 PAIN ASSESS POS TOOL F/U PLAN DOC FA211 ESTABILISHED PATIENT [facility] FAC[facility] CHARGE FOLLOW UP TPI IN ONE WEEK ELECTRONICALLY SIGNED BY RENETTA SHETH MD ON 11/03/2016 AT 04:14 PM EST DISCLAIMER : THIS IS A VISIT SUMMARY EXTRACTED FROM THE [employer] CHART. IT IS NOT A COPY OF THE [employer] PROGRESS NOTE. CORET[place]
== END ==
LOC: M PAIN 10:40
PROVIDERS: ATTEND Anesthesiology
DX: M79.1 Myalgia (principal); M47.816 Spondylosis without myelopathy or radiculopathy, lumbar region; M47.817 Spondylosis without myelopathy or radiculopathy, lumbosacral region; G89.29 Other chronic pain; M54.5 Low back pain; Z79.891 Long term (current) use of opiate analgesic; Z79.899 Other long term (current) drug therapy

== ENCOUNTER → 2016-11-12 | Outpatient (CLI) | payer MEDICAID ==
[~2016-11-12] MED LIST changes: +BUPIVACAINE HCL 0.25% 10 ML VIAL As Ordered ONE; +BUPIVACAINE HCL 0.25% 30 ML VIAL As Ordered ONE; +TRIAMCINOLONE ACETONIDE SUSP 40 MG/ML VIAL (J3301) As Ordered ONE; +diazePAM 5 MG TAB As Ordered ONE; +oxyCODONE 5MG TAB As Ordered ONE
--- NOTE | 2016-11-16 00:13 | ECWPNPC ---
PATIENT NAME: GAVI LIGHT : 1990 GENDER: MALE VISIT DATE: 11/12/2016 DISCHARGE DATE: 11/12/16 0938 VISIT LOCKED DATE TIME: PHYSICIAN: RENETTA SHETH PHYSICIAN PAGER NO: [phone] RESOURCE: RENETTA SHETH REASON FOR APPOINTMENT 1. TPI HISTORY OF PRESENT ILLNESS HISTORY OF PRESENT ILLNESS: PAIN THE PATIENT DESCRIBES THE PAIN... FALL RISK SCREENING: SCREENING :NO FALLS IN THE PAST YEAR CURRENT MEDICATIONS TAKING TIZANIDINE HCL 4 MG CAPSULE 1 TABLET NEEDED ORALLY BEFORE BEDTIME CAN REPEAT IN 4 HRS MDD2, NOTES: 11-11-162199 TAKING GABAPENTIN 300 MG CAPSULE 1 CAPSULE ORALLY BEFORE BEDTIME FOR PAIN, NOTES: 11-11-162199 TAKING CYMBALTA 30 MG CAPSULE DELAYED RELEASE PARTICLES 1 CAPSULE ORALLY WITH FOOD TWICE A DAY FOR PAIN, NOTES: NOT STARTED YET NOT-TAKING HYDROCODONE-ACETAMINOPHEN 7.5-325 MG TABLET 1 TABLET NEEDED ORALLY FOR PAIN EVERY 6 HRS NEEDED MDD4, NOTES: 10-08-16 1030 NOT-TAKING METHOCARBAMOL 750 MG TABLET 1-2 TABLET ORALLY EVERY 8 HRS FOR MUSCLE SPASM NOT-TAKING TYLENOL 325 MG TABLET 1 TABLET NEEDED ORALLY EVERY 6 HRS MEDICATION LIST REVIEWED AND RECONCILED WITH THE PATIENT PAST MEDICAL HISTORY BACK PAIN SOCIAL HISTORY GENERAL: TOBACCO USE ARE YOU A:CURRENT SMOKER PATIENT COUNSELED ON THE DANGERS OF TOBACCO USE AND URGED TO QUIT:11/12/2016 ARE YOU INTERESTED IN QUITTING?THINKING ABOUT QUITTING COUNSELED THE PATIENT ON SMOKING CESSATION, EDUCATION [id number] LEARNING BARRIERS / SPECIAL NEEDS ORIENTED TO PLAN OF CARE: PATIENT, PAIN MANAGEMENT PATIENT, ORIENTED TO PLAN OF CARE: PATIENT, PAIN MANAGEMENT PATIENT. NEW PATIENT PAIN DIARY TODAY'S VISITNOTES FROM 0-10, WHAT LEVEL IS YOUR PAIN TODAY?0 PAIN CLINIC PFS, CLERGY, PUBLIC HEALTH REFERRALS PFS REFERRAL NEEDED?NO CLERGY REFERRAL NEEDED?NO PUBLIC HEALTH REFERRAL NEEDED?NO WAS THE PROVIDER NOTIFIED OF ANY PERTINENT INFO?NO PFS REFERRAL NEEDED?NO CLERGY REFERRAL NEEDED?NO PUBLIC HEALTH REFERRAL NEEDED?NO WAS THE PROVIDER NOTIFIED OF ANY PERTINENT INFO?NO REVIEW OF SYSTEMS CONSTITUTIONAL: ANY CHANGE IN YOUR MEDICAL CONDITION? NO . CHILLS NO . FEVER NO . INFECTION: DO YOU HAVE NEW INFECTIONS? NO . DO YOU HAVE HISTORY OF MRSA? NO . MUSCULOSKELETAL: ANY NEW PATTERNS OF PAIN OR NUMBNESS? NO . GASTROENTEROLOGY: ANY NEW CHANGE IN BOWEL CONTROL? NO . GENITOURINARY: ANY NEW CHANGE IN BLADDER CONTROL? NO . IS THERE A CHANCE YOU COULD BE ? NO . HEMATOLOGY/LYMPH: DO YOU TAKE ANY BLOOD THINNERS? (FOR EXAMPLE- COUMADIN, PLAVIX, AGGRENOX, PLATEL, PRADAXA, OR XARELTO) NO . WHEN WAS YOUR LAST DOSE? DATE: TIME: . NEUROLOGY: HAVE YOU FALLEN IN THE PAST 6 MONTHS? NO . ANY NEW EXTREMITY NUMBNESS OR WEAKNESS? NO . CARDIOLOGY: DO YOU HAVE A PACEMAKER OR DEFIBRILLATOR? NO . RESPIRATORY: HAVE YOU BEEN SICK IN THE PAST WEEK? NO . FEVER NO . FLU LIKE SYMPTOMS? NO . COUGH NO . INTEGUMENTARY: DO YOU HAVE ANY RASHES OR OPEN SORES? NO . ALLERGIC/IMMUNO: ARE YOU ALLERGIC TO SHELLFISH OR IV DYE? NO . ANY NEW ALLERGIES? NO . PSYCHIATRIC: DO YOU HAVE THOUGHTS OF HURTING YOURSELF OR SOMEONE ELSE? NO . ARE YOU ABUSED, NEGLECTED, OR IN AN UNSAFE ENVIRONMENT? NO . ENDOCRINOLOGY: ARE YOU DIABETIC? NO . OTHER: DO YOU NEED ANY PRESCRIPTIONS? NO . IF YES, PLEASE LIST: ____ . ANY NEW PROBLEMS WITH YOUR MEDICATIONS? NO . WHEN DID YOU LAST EAT? LAST NIGHT . WHEN DID YOU LAST DRINK? 11/12 . WHAT DID YOU LAST DRINK? WATER . NAME OF PERSON DRIVING YOU HOME? LINZI . DO YOU HAVE ANY OTHER QUESTIONS OR CONCERNS NO . REVIEWED BY: PROVIDER: . VITAL SIGNS WT 230 LBS, HT 71 1/2, BMI 31.63 INDEX, BP 132/80 MM HG, HR 76 /MIN, RR 16 /MIN, TEMP 96.0 F, OXYGEN SAT % 96, NA INITIALS TL 0854. ASSESSMENTS MYALGIA - M79.1 (PRIMARY) PROCEDURES PN TRIGGER POINT INJECTION WITH STEROIDS PRE PROCEDURE DIAGNOSIS 1. MYALGIA 2. PAIN AT BILATERAL THORACIC AREA AND BILATERAL LOW BACK AREA POST PROCEDURE DIAGNOSIS 1. MYALGIA 2. PAIN AT BILATERAL THORACIC AREA AND BILATERAL LOW BACK AREA PROCEDURE TRIGGER POINT INJECTION AT BILATERAL THORACIC AREA AND BILATERAL LOW BACK AREA SURGEON DR. RENETTA SHETH RN ORTHOPAEDIC NONE ANESTHESIA LOCAL PRE PROCEDURE NOTE THE PATIENT HAS A HISTORY OF CHRONIC PAIN AT THE RIGHT AND LEFT THORACIC AREA AND RIGHT AND LEFT LOW BACK AREA. I EVALUATE THE PATIENT AND REVIEWED THE CHART. THERE IS EVIDENCE OF BANDS OF TISSUE WITH RESTRICTION OF MOVEMENT AND PRESENCE OF TRIGGER POINT AT THE AFFECTED AREA. I WENT OVER THE RISKS, ALTERNATIVES, AND BENEFITS ASSOCIATED WITH THIS PROCEDURE. THE PATIENT WOULD LIKE TO PROCEED AND GIVE CONSENT TO PERFORMED THE PROCEDURE. THE PATIENT DENIES UNEXPLAINABLE WEIGHT LOSS, FEVER, CHILLS, OR NEW CHANGES IN URINARY OR BOWEL CONTROL DESCRIPTION OF PROCEDURE THE PATIENT WAS BROUGHT TO THE PROCEDURE ROOM AND PLACED IN THE SITTING POSITION. THE AREA WAS CLEANED WITH ALCOHOL. THE PROCEDURE WAS DONE USING ASEPTIC STERILE TECHNIQUE. I CHECKED LATERALITY AND THE LEVEL WHERE THE PROCEDURE WAS GOING TO BE PERFORMED WITH THE PATIENT AND THE SUPPORTING STAFF AT THE MOMENT OF THE TIME OUT IN THE PROCEDURE ROOM. USING A 25-GAUGE NEEDLE, TRIGGER POINTS WERE INJECTED AT THE RIGHT AND LEFT THORACIC AREA AND RIGHT AND LEFT LOW BACK AREA WITH A TOTAL OF 40 ML OF BUPIVACAINE 0.25% AND KENALOG 40 MG. THERE WAS NO EVIDENCE OF BLOOD, PARESTHESIA OR CEREBROSPINAL FLUID DURING THE PROCEDURE. THE PATIENT WAS SENT TO THE RECOVERY ROOM. THE PATIENT WAS MOVING THE EXTREMITIES AND DOING WELL. THERE WAS NO COMPLICATION DURING THE PROCEDURE POST PROCEDURE NOTE THE PATIENT WILL BE SEEN IN A FOLLOW UP IN THE NEXT FEW WEEKS. INSTRUCTIONS WERE GIVEN, QUESTIONS WERE ANSWERED, AND THE PATIENT EXPRESSED UNDERSTANDING AND AGREES WITH THE PLAN. INSTRUCTIONS WERE GIVEN, QUESTIONS WERE ANSWERED, PATIENT REPORTS UNDERSTANDING AND AGREES WITH THE PLAN. I, KARRI MORFIN, DOCUMENTED THE ABOVE INFORMATION ACTING A SCRIBE FOR DR. SHETH. I HAVE REVIEWED THE ABOVE DOCUMENT, WRITTEN BY KARRI MORFIN SCRIBE AND I VERIFY THAT IT IS ACCURATE. PROCEDURE CODES 00835 INJECT TRIGGER POINTS 3/> FOLLOW UP 3 WEEKS ELECTRONICALLY SIGNED BY RENETTA SHETH MD ON 11/15/2016 AT 08:53 PM EST DISCLAIMER : THIS IS A VISIT SUMMARY EXTRACTED FROM THE [employer] CHART. IT IS NOT A COPY OF THE [employer] PROGRESS NOTE. [facility]
== END ==
LOC: M PAIN 09:00
PROVIDERS: ATTEND Anesthesiology
DX: G89.29 Other chronic pain (principal); M79.1 Myalgia; M54.6 Pain in thoracic spine; M54.5 Low back pain; F17.200 Nicotine dependence, unspecified, uncomplicated; Z79.899 Other long term (current) drug therapy
CPT/HCPCS: 20553; J3301

== ENCOUNTER → 2016-12-28 | Outpatient (CLI) | payer MEDICAID ==
[~2016-12-28] MED LIST changes: -BUPIVACAINE HCL 0.25% 10 ML VIAL As Ordered ONE; -BUPIVACAINE HCL 0.25% 30 ML VIAL As Ordered ONE; -TRIAMCINOLONE ACETONIDE SUSP 40 MG/ML VIAL (J3301) As Ordered ONE; -diazePAM 5 MG TAB As Ordered ONE; -oxyCODONE 5MG TAB As Ordered ONE
--- NOTE | 2017-01-04 01:25 | ECWPNPC ---
PATIENT NAME: GAVI LIGHT : 1990 GENDER: MALE VISIT DATE: 12/28/2016 DISCHARGE DATE: 12/28/16 1522 VISIT LOCKED DATE TIME: PHYSICIAN: RENETTA SHETH PHYSICIAN PAGER NO: [phone] RESOURCE: RENETTA SHETH REASON FOR APPOINTMENT 1. POST PROCEDURE HISTORY OF PRESENT ILLNESS HISTORY OF PRESENT ILLNESS: PAIN THE PATIENT DESCRIBES THE PAIN... 26 YEAR OLD MALE PATIENT WITH HISTORY OF CHRONIC LOW BACK PAIN. PATIENT DESCRIBES THE PAIN ACHING, THROBBING, AND HAVING IT ALL THE TIME WITH A PAIN SCORE OF 9/10 ON TODAY'S VISIT. PATIENT RECEIVED A TPI ON 11/12/2016 AND STATES THAT IT APPEARS TO WORK FOR HIS LOWER BACK BUT DID NOT HELP AT ALL WITH THE THORACIC AREA AND THE INJECTION SITES HURT. PATIENT STATES THAT THE PAIN IN THE THORACIC AREA IS CONSTANT, WHILE THE PAIN IN HER LOWER BACK COMES AND GOES. PATIENT REPORTS THAT TAKING GABAPENTIN AND TIZANIDINE HELPS HIM TO SLEEP AT NIGHT. PATIENT REPORTS THAT HE IS OUT OF GABAPENTIN. PATIENT DENIES UNEXPLAINABLE WEIGHT LOSS, FEVER, CHILLS, NEW CHANGES ON HIS URINARY OR BOWEL CONTROL. FALL RISK SCREENING: SCREENING :NO FALLS IN THE PAST YEAR CURRENT MEDICATIONS TAKING TIZANIDINE HCL 4 MG CAPSULE 1 TABLET NEEDED ORALLY BEFORE BEDTIME CAN REPEAT IN 4 HRS MDD2, NOTES: 11-11-16 2200 TAKING GABAPENTIN 300 MG CAPSULE 1 CAPSULE ORALLY BEFORE BEDTIME FOR PAIN, NOTES: 11-11-16 2200 TAKING CYMBALTA 30 MG CAPSULE DELAYED RELEASE PARTICLES 1 CAPSULE ORALLY WITH FOOD TWICE A DAY FOR PAIN, NOTES: NOT STARTED YET TAKING IBUPROFEN 400 MG TABLET 1 TABLET ORALLY THREE TIMES A DAY NOT-TAKING HYDROCODONE-ACETAMINOPHEN 7.5-325 MG TABLET 1 TABLET NEEDED ORALLY FOR PAIN EVERY 6 HRS NEEDED MDD4, NOTES: 10-08-16 1030 NOT-TAKING METHOCARBAMOL 750 MG TABLET 1-2 TABLET ORALLY EVERY 8 HRS FOR MUSCLE SPASM NOT-TAKING TYLENOL 325 MG TABLET 1 TABLET NEEDED ORALLY EVERY 6 HRS MEDICATION LIST REVIEWED AND RECONCILED WITH THE PATIENT PAST MEDICAL HISTORY BACK PAIN ALLERGIES N.K.D.A. SURGICAL HISTORY NONE FAMILY HISTORY NO FAMILY HISTORY DOCUMENTED. SOCIAL HISTORY GENERAL: TOBACCO USE ARE YOU A:NONSMOKER LEARNING BARRIERS / SPECIAL NEEDS ORIENTED TO PLAN OF CARE: PATIENT, PAIN MANAGEMENT PATIENT, ORIENTED TO PLAN OF CARE: PATIENT, PAIN MANAGEMENT PATIENT. NEW PATIENT PAIN DIARY TODAY'S VISITNOTES FROM 0-10, WHAT LEVEL IS YOUR PAIN TODAY?0 PAIN CLINIC PFS, CLERGY, PUBLIC HEALTH REFERRALS PFS REFERRAL NEEDED?NO CLERGY REFERRAL NEEDED?NO PUBLIC HEALTH REFERRAL NEEDED?NO WAS THE PROVIDER NOTIFIED OF ANY PERTINENT INFO?NO PFS REFERRAL NEEDED?NO CLERGY REFERRAL NEEDED?NO PUBLIC HEALTH REFERRAL NEEDED?NO WAS THE PROVIDER NOTIFIED OF ANY PERTINENT INFO?NO HOSPITALIZATION/MAJOR DIAGNOSTIC PROCEDURE NO HOSPITALIZATION HISTORY. REVIEW OF SYSTEMS CONSTITUTIONAL: ANY CHANGE IN YOUR MEDICAL CONDITION? NO . CHILLS NO . FEVER NO . INFECTION: DO YOU HAVE NEW INFECTIONS? NO . DO YOU HAVE HISTORY OF MRSA? NO . MUSCULOSKELETAL: ANY NEW PATTERNS OF PAIN OR NUMBNESS? NO . GASTROENTEROLOGY: ANY NEW CHANGE IN BOWEL CONTROL? NO . GENITOURINARY: ANY NEW CHANGE IN BLADDER CONTROL? NO . IS THERE A CHANCE YOU COULD BE ? NO . HEMATOLOGY/LYMPH: DO YOU TAKE ANY BLOOD THINNERS? (FOR EXAMPLE- COUMADIN, PLAVIX, AGGRENOX, PLATEL, PRADAXA, OR XARELTO) NO . WHEN WAS YOUR LAST DOSE? DATE: TIME: . NEUROLOGY: HAVE YOU FALLEN IN THE PAST 6 MONTHS? NO . ANY NEW EXTREMITY NUMBNESS OR WEAKNESS? NO . CARDIOLOGY: DO YOU HAVE A PACEMAKER OR DEFIBRILLATOR? NO . RESPIRATORY: HAVE YOU BEEN SICK IN THE PAST WEEK? NO . FEVER NO . FLU LIKE SYMPTOMS? NO . COUGH NO . INTEGUMENTARY: DO YOU HAVE ANY RASHES OR OPEN SORES? NO . ALLERGIC/IMMUNO: ARE YOU ALLERGIC TO SHELLFISH OR IV DYE? NO . ANY NEW ALLERGIES? NO . PSYCHIATRIC: DO YOU HAVE THOUGHTS OF HURTING YOURSELF OR SOMEONE ELSE? NO . ARE YOU ABUSED, NEGLECTED, OR IN AN UNSAFE ENVIRONMENT? NO . ENDOCRINOLOGY: ARE YOU DIABETIC? NO . OTHER: DO YOU NEED ANY PRESCRIPTIONS? YES . IF YES, PLEASE LIST: ____GABAPENTIN . ANY NEW PROBLEMS WITH YOUR MEDICATIONS? YES CYMBALTA INEFFECTIVE AND MAKES HIM RESTLESS AT NIGHT . WHEN DID YOU LAST EAT? ____ . WHEN DID YOU LAST DRINK? ____ . WHAT DID YOU LAST DRINK? ____ . NAME OF PERSON DRIVING YOU HOME? ____ . DO YOU HAVE ANY OTHER QUESTIONS OR CONCERNS YES PT STARTED ON CYMBALTA, FEELS IT IS INEFFECTIVE IN RELIEVING HIS PAIN, AND GIVES HIM RESTLESS LEGS AT NIGHT . REVIEWED BY: PROVIDER: RENETTA SHETH MD . VITAL SIGNS WT 257.8 LBS, HT 71 1/2, BMI 35.45 INDEX, BP 144/71 MM HG, HR 59 /MIN, RR 18 /MIN, TEMP 98.6 F, OXYGEN SAT % 97, SAFE IN ENV? (Y/N) YES, NA INITIALS [id number], REVIEWED BY: TAIWO. EXAMINATION : PATIENT IS ALERT O X 3 AND COOPERATIVE. PATIENT'S LOWER BACK IS NOT TENSE BEFORE. THERE IS STILL TENDERNESS IN THE THORACIC PARASPINAL MUSCLE GROUP WITH BANDS OF TISSUES, RESTRICTION OF MOVEMENT, AND PRESENCE OF TRIGGER POINTS. MRI OF THE LUMBAR SPINE DONE ON 08-23-2016 SHOWS A LARGE CENTRAL DISC PROTRUSION AT L5-S1 AND A TINY CENTRAL DISC PROTRUSION AT L4-L5. ASSESSMENTS MYALGIA - M79.1 (PRIMARY) SPONDYLOSIS WITHOUT MYELOPATHY OR RADICULOPATHY, LUMBAR REGION - M47.816 SPONDYLOSIS WITHOUT MYELOPATHY OR RADICULOPATHY, LUMBOSACRAL REGION - M47.817 TREATMENT MYALGIA REFILL GABAPENTIN CAPSULE, 400 MG, 1 CAPSULE, ORALLY, BEFORE BEDTIME FOR PAIN, 30 DAY(S), 30, REFILLS 1, NOTES: [id number] NOTES: WE DISCUSSED SEVERAL ISSUES WITH MR. LIGHT'S PAIN MANAGEMENT CASE. AT THIS TIME THE PATIENT WILL RECEIVE A REFILL OF IBUPROFEN AND PATIENT WILL START ON AN INCREASE DOSAGE OF GABAPENTIN. DISCUSSED WITH THE PATIENT THE RISKS AND BENEFITS OF USE OF NSAIDS SUCH IBUPROFEN, CELEBREX, AND DICLOFEN WERE REVIEWED WITH THE PATIENT INCLUDING THE RISK OF GI BLEED, AND INCREASED RISK OF HEART ATTACK AND STROKE AND TO TAKE IBUPROFEN WITH FOOD. AFTER EXAMINING THE PATIENT HE IS A GOOD CANDIDATE FOR A BILATERAL TPI IN THE THORACIC AREA. WE DISCUSSED THE RISK, BENEFITS, AND ALTERNATIVES AND THE PATIENT WOULD LIKE TO PROCEED. INSTRUCTIONS WERE GIVEN, QUESTIONS WERE ANSWERED, PATIENT REPORTS UNDERSTANDING AND AGREES WITH THE PLAN. I, KARRI MORFIN, DOCUMENTED THE ABOVE INFORMATION ACTING A SCRIBE FOR DR. SHETH. I HAVE REVIEWED THE ABOVE DOCUMENT, WRITTEN BY KARRI PEDRAZA AND I VERIFY THAT IT IS ACCURATE. OTHERS REFILL IBUPROFEN TABLET, 800 MG, 1 TABLET, ORALLY WITH FOOD, THREE TIMES A DAY NEEDED FOR PAIN, 30 DAY(S), 60, REFILLS 1 PREVENTIVE MEDICINE PAIN CLINIC TEACHING: PROCEDURE TEACHING TRIGGER POINTS HANDOUT REVIEWED WITH PT, PT VERBALIZES UNDERSTANDING. PROCEDURE CODES FA211 ESTABILISHED PATIENT [facility] FACILITY CHARGE G8730 PAIN ASSESS POS TOOL F/U PLAN DOC G8427 DOC MEDS VERIFIED W/PT OR RE DISPOSITION & COMMUNICATION FOLLOW UP TPI PENDING APPROVAL ELECTRONICALLY SIGNED BY RENETTA SHETH MD ON 01/03/2017 AT 12:20 PM EDT DISCLAIMER : THIS IS A VISIT SUMMARY EXTRACTED FROM THE [employer] CHART. IT IS NOT A COPY OF THE [employer] PROGRESS NOTE. MIKED
== END ==
LOC: M PAIN 14:40
PROVIDERS: ATTEND Anesthesiology
DX: Z09 Encounter for follow-up examination after completed treatment for conditions other than malignant neoplasm (principal); G89.29 Other chronic pain; M79.1 Myalgia; M47.816 Spondylosis without myelopathy or radiculopathy, lumbar region; M47.817 Spondylosis without myelopathy or radiculopathy, lumbosacral region; Z79.1 Long term (current) use of non-steroidal anti-inflammatories (NSAID); Z79.899 Other long term (current) drug therapy

== ENCOUNTER → 2017-01-03 | Outpatient (CLI) | payer MEDICAID ==
[~2017-01-03] MED LIST changes: +BUPIVACAINE HCL 0.25% 10 ML VIAL As Ordered ONE; +BUPIVACAINE HCL 0.25% 30 ML VIAL As Ordered ONE; +TRIAMCINOLONE ACETONIDE SUSP 40 MG/ML VIAL (J3301) As Ordered ONE; +diazePAM 5 MG TAB As Ordered ONE; +oxyCODONE 5MG TAB As Ordered ONE
--- NOTE | 2017-01-05 23:37 | ECWPNPC ---
PATIENT NAME: GAVI LIGHT : 1990 GENDER: MALE VISIT DATE: 01/03/2017 DISCHARGE DATE: 01/03/17 1344 VISIT LOCKED DATE TIME: PHYSICIAN: RENTETA SHETH PHYSICIAN PAGER NO: [phone] RESOURCE: RENETTA SHETH REASON FOR APPOINTMENT 1. LUISA TPI THORACIC HISTORY OF PRESENT ILLNESS HISTORY OF PRESENT ILLNESS: PAIN THE PATIENT DESCRIBES THE PAIN... FALL RISK SCREENING: SCREENING :NO FALLS IN THE PAST YEAR CURRENT MEDICATIONS TAKING GABAPENTIN 400 MG CAPSULE 1 CAPSULE ORALLY BEFORE BEDTIME FOR PAIN, NOTES: 2199 TAKING IBUPROFEN 800 MG TABLET 1 TABLET ORALLY WITH FOOD THREE TIMES A DAY NEEDED FOR PAIN, NOTES: 01-02-17 TAKING TIZANIDINE HCL 4 MG CAPSULE 1 TABLET NEEDED ORALLY BEFORE BEDTIME CAN REPEAT IN 4 HRS MDD2, NOTES: 01-02-172199 TAKING CYMBALTA 30 MG CAPSULE DELAYED RELEASE PARTICLES 1 CAPSULE ORALLY WITH FOOD TWICE A DAY FOR PAIN, NOTES: 2199 NOT-TAKING HYDROCODONE-ACETAMINOPHEN 7.5-325 MG TABLET 1 TABLET NEEDED ORALLY FOR PAIN EVERY 6 HRS NEEDED MDD4, NOTES: 10-08-16 1030 NOT-TAKING METHOCARBAMOL 750 MG TABLET 1-2 TABLET ORALLY EVERY 8 HRS FOR MUSCLE SPASM NOT-TAKING TYLENOL 325 MG TABLET 1 TABLET NEEDED ORALLY EVERY 6 HRS MEDICATION LIST REVIEWED AND RECONCILED WITH THE PATIENT PAST MEDICAL HISTORY BACK PAIN SOCIAL HISTORY GENERAL: TOBACCO USE ARE YOU A:NONSMOKER LEARNING BARRIERS / SPECIAL NEEDS ORIENTED TO PLAN OF CARE: PATIENT, PAIN MANAGEMENT PATIENT, ORIENTED TO PLAN OF CARE: PATIENT, PAIN MANAGEMENT PATIENT. NEW PATIENT PAIN DIARY TODAY'S VISITNOTES FROM 0-10, WHAT LEVEL IS YOUR PAIN TODAY?0 PAIN CLINIC PFS, CLERGY, PUBLIC HEALTH REFERRALS PFS REFERRAL NEEDED?NO CLERGY REFERRAL NEEDED?NO PUBLIC HEALTH REFERRAL NEEDED?NO WAS THE PROVIDER NOTIFIED OF ANY PERTINENT INFO?NO PFS REFERRAL NEEDED?NO CLERGY REFERRAL NEEDED?NO PUBLIC HEALTH REFERRAL NEEDED?NO WAS THE PROVIDER NOTIFIED OF ANY PERTINENT INFO?NO REVIEW OF SYSTEMS CONSTITUTIONAL: ANY CHANGE IN YOUR MEDICAL CONDITION? NO . CHILLS NO . FEVER NO . INFECTION: DO YOU HAVE NEW INFECTIONS? NO . DO YOU HAVE HISTORY OF MRSA? NO . MUSCULOSKELETAL: ANY NEW PATTERNS OF PAIN OR NUMBNESS? NO . GASTROENTEROLOGY: ANY NEW CHANGE IN BOWEL CONTROL? NO . GENITOURINARY: ANY NEW CHANGE IN BLADDER CONTROL? NO . IS THERE A CHANCE YOU COULD BE ? NO . HEMATOLOGY/LYMPH: DO YOU TAKE ANY BLOOD THINNERS? (FOR EXAMPLE- COUMADIN, PLAVIX, AGGRENOX, PLATEL, PRADAXA, OR XARELTO) NO . WHEN WAS YOUR LAST DOSE? DATE: TIME: . NEUROLOGY: HAVE YOU FALLEN IN THE PAST 6 MONTHS? NO . ANY NEW EXTREMITY NUMBNESS OR WEAKNESS? NO . CARDIOLOGY: DO YOU HAVE A PACEMAKER OR DEFIBRILLATOR? NO . RESPIRATORY: HAVE YOU BEEN SICK IN THE PAST WEEK? NO . FEVER NO . FLU LIKE SYMPTOMS? NO . COUGH NO . INTEGUMENTARY: DO YOU HAVE ANY RASHES OR OPEN SORES? NO . ALLERGIC/IMMUNO: ARE YOU ALLERGIC TO SHELLFISH OR IV DYE? NO . ANY NEW ALLERGIES? NO . PSYCHIATRIC: DO YOU HAVE THOUGHTS OF HURTING YOURSELF OR SOMEONE ELSE? NO . ARE YOU ABUSED, NEGLECTED, OR IN AN UNSAFE ENVIRONMENT? NO . ENDOCRINOLOGY: ARE YOU DIABETIC? NO . OTHER: DO YOU NEED ANY PRESCRIPTIONS? NO . IF YES, PLEASE LIST: ____ . ANY NEW PROBLEMS WITH YOUR MEDICATIONS? NO . WHEN DID YOU LAST EAT? ____LAST NIGHT 2030 . WHEN DID YOU LAST DRINK? ____THIS MORNING 1030 . WHAT DID YOU LAST DRINK? ____APPLE JUICE . NAME OF PERSON DRIVING YOU HOME? ____LINZI . DO YOU HAVE ANY OTHER QUESTIONS OR CONCERNS NO . REVIEWED BY: PROVIDER: . VITAL SIGNS WT 257.8 LBS, HT 71 1/2, BMI 35.45 INDEX, BP 129/73 MM HG, HR 79 /MIN, RR 16 /MIN, TEMP 98.5 F, OXYGEN SAT % 96%, SAFE IN ENV? (Y/N) YES, NA INITIALS SC 12:42, REVIEWED BY: KG. ASSESSMENTS MYALGIA - M79.1 (PRIMARY) PROCEDURES PN TRIGGER POINT INJECTION WITH STEROIDS PRE PROCEDURE DIAGNOSIS 1. MYALGIA 2. PAIN AT BILATERAL THORACIC AREA AND BILATERAL LUMBAR AREA POST PROCEDURE DIAGNOSIS 1. MYALGIA 2. PAIN AT BILATERAL THORACIC AREA AND BILATERAL LUMBAR AREA PROCEDURE TRIGGER POINT INJECTION AT BILATERAL THORACIC AREA AND BILATERAL LUMBAR AREA SURGEON DR. RENETTA SHETH SANE RN NONE ANESTHESIA LOCAL PRE PROCEDURE NOTE THE PATIENT HAS A HISTORY OF CHRONIC PAIN AT THE RIGHT AND LEFT THORACIC AREA AND RIGHT AND LEFT LUMBAR AREA. I EVALUATE THE PATIENT AND REVIEWED THE CHART. THERE IS EVIDENCE OF BANDS OF TISSUE WITH RESTRICTION OF MOVEMENT AND PRESENCE OF TRIGGER POINT AT THE AFFECTED AREA. I WENT OVER THE RISKS, ALTERNATIVES, AND BENEFITS ASSOCIATED WITH THIS PROCEDURE. THE PATIENT WOULD LIKE TO PROCEED AND GIVE CONSENT TO PERFORMED THE PROCEDURE. THE PATIENT DENIES UNEXPLAINABLE WEIGHT LOSS, FEVER, CHILLS, OR NEW CHANGES IN URINARY OR BOWEL CONTROL DESCRIPTION OF PROCEDURE THE PATIENT WAS BROUGHT TO THE PROCEDURE ROOM AND PLACED IN THE SITTING POSITION. THE AREA WAS CLEANED WITH ALCOHOL. THE PROCEDURE WAS DONE USING ASEPTIC STERILE TECHNIQUE. I CHECKED LATERALITY AND THE LEVEL WHERE THE PROCEDURE WAS GOING TO BE PERFORMED WITH THE PATIENT AND THE SUPPORTING STAFF AT THE MOMENT OF THE TIME OUT IN THE PROCEDURE ROOM. USING A 25-GAUGE NEEDLE, TRIGGER POINTS WERE INJECTED AT THE RIGHT AND LEFT THORACIC AREA AND RIGHT AND LEFT LUMBAR AREA WITH A TOTAL OF 40 ML OF BUPIVACAINE 0.25% AND KENALOG 40 MG. THERE WAS NO EVIDENCE OF BLOOD, PARESTHESIA OR CEREBROSPINAL FLUID DURING THE PROCEDURE. THE PATIENT WAS SENT TO THE RECOVERY ROOM. THE PATIENT WAS MOVING THE EXTREMITIES AND DOING WELL. THERE WAS NO COMPLICATION DURING THE PROCEDURE POST PROCEDURE NOTE THE PATIENT WILL BE SEEN IN A FOLLOW UP IN THE NEXT FEW WEEKS. INSTRUCTIONS WERE GIVEN, QUESTIONS WERE ANSWERED, AND THE PATIENT EXPRESSED UNDERSTANDING AND AGREES WITH THE PLAN. INSTRUCTIONS WERE GIVEN, QUESTIONS WERE ANSWERED, PATIENT REPORTS UNDERSTANDING AND AGREES WITH THE PLAN. I, KARRI MORFIN, DOCUMENTED THE ABOVE INFORMATION ACTING A SCRIBE FOR DR. SHETH. I HAVE REVIEWED THE ABOVE DOCUMENT, WRITTEN BY KARRI MORFIN SCRIBKamar AND I VERIFY THAT IT IS ACCURATE. PROCEDURE CODES 20868 INJECT TRIGGER POINTS 3/> DISPOSITION & COMMUNICATION FOLLOW UP 3 WEEKS ELECTRONICALLY SIGNED BY RENETTA SHETH MD ON 01/05/2017 AT 08:35 PM EDT DISCLAIMER : THIS IS A VISIT SUMMARY EXTRACTED FROM THE [employer] CHART. IT IS NOT A COPY OF THE [employer] PROGRESS NOTE. CORETTA
== END ==
LOC: M PAIN 12:50
PROVIDERS: ATTEND Anesthesiology
DX: G89.29 Other chronic pain (principal); M79.1 Myalgia; M54.6 Pain in thoracic spine; M54.5 Low back pain; Z79.1 Long term (current) use of non-steroidal anti-inflammatories (NSAID); Z79.899 Other long term (current) drug therapy
CPT/HCPCS: 20553; J3301

== ENCOUNTER → 2017-01-13 | Outpatient (CLI) | payer MEDICAID ==
[~2017-01-13] MED LIST changes: -BUPIVACAINE HCL 0.25% 10 ML VIAL As Ordered ONE; -BUPIVACAINE HCL 0.25% 30 ML VIAL As Ordered ONE; +GABA-282 PO; -GABA300C3 PO; -TRIAMCINOLONE ACETONIDE SUSP 40 MG/ML VIAL (J3301) As Ordered ONE; -diazePAM 5 MG TAB As Ordered ONE; -oxyCODONE 5MG TAB As Ordered ONE
--- NOTE | 2017-01-18 00:52 | ECWPNPC ---
PATIENT NAME: GAVI LIGHT : 1990 GENDER: MALE VISIT DATE: 01/13/2017 DISCHARGE DATE: 01/13/17 1711 VISIT LOCKED DATE TIME: PHYSICIAN: RENETTA SHETH PHYSICIAN PAGER NO: [phone] RESOURCE: RENETTA SHETH REASON FOR APPOINTMENT 1. MEDS HISTORY OF PRESENT ILLNESS HISTORY OF PRESENT ILLNESS: PAIN THE PATIENT DESCRIBES THE PAIN... 26 YEAR OLD MALE PATIENT WITH HISTORY OF CHRONIC LOW BACK PAIN. PATIENT DESCRIBES THE PAIN SHARP AND HAVING IT ALL THE TIME WITH A PAIN SCORE OF 8-9/10 ON TODAY'S VISIT. PATIENT RECEIVED A TPI IN THE THORACIC AND LUMBAR AREA. PATIENT REPORTS THAT HIS THORACIC AREA IS NOT PAIN FREE AND THE PAIN NOW IS IN HIS LOW BACK. PATIENT STATES THAT HE IS STILL PRETTY TENSE WELL. PATIENT REPORTS THAT SINCE THE TPI HE NOW HAS NUMBNESS IN THE SIDE AND BACK OF BOTH LEGS. PATIENT REPORTS THAT HE DOES HAVE FEELING IN THE FRONT OF HIS LEGS. PATIENT REPORTS ANOTHER PAINFUL AREA IS HIS LEFT BUTTOCK AREA. PATIENT STATES THAT SITTING CAUSES THE NUMBNESS IN HIS LEGS TO BE WORST. PATIENT DENIES UNEXPLAINABLE WEIGHT LOSS, FEVER, CHILLS, NEW CHANGES ON HIS URINARY OR BOWEL CONTROL. FALL RISK SCREENING: SCREENING :NO FALLS IN THE PAST YEAR CURRENT MEDICATIONS TAKING GABAPENTIN 400 MG CAPSULE 1 CAPSULE ORALLY BEFORE BEDTIME FOR PAIN TAKING IBUPROFEN 800 MG TABLET 1 TABLET ORALLY WITH FOOD THREE TIMES A DAY NEEDED FOR PAIN TAKING TIZANIDINE HCL 4 MG CAPSULE 1 TABLET NEEDED ORALLY BEFORE BEDTIME CAN REPEAT IN 4 HRS MDD2 TAKING CYMBALTA 30 MG CAPSULE DELAYED RELEASE PARTICLES 1 CAPSULE ORALLY WITH FOOD TWICE A DAY FOR PAIN NOT-TAKING HYDROCODONE-ACETAMINOPHEN 7.5-325 MG TABLET 1 TABLET NEEDED ORALLY FOR PAIN EVERY 6 HRS NEEDED MDD4, NOTES: 10-08-16 1030 NOT-TAKING METHOCARBAMOL 750 MG TABLET 1-2 TABLET ORALLY EVERY 8 HRS FOR MUSCLE SPASM NOT-TAKING TYLENOL 325 MG TABLET 1 TABLET NEEDED ORALLY EVERY 6 HRS MEDICATION LIST REVIEWED AND RECONCILED WITH THE PATIENT PAST MEDICAL HISTORY BACK PAIN ALLERGIES N.K.D.A. SURGICAL HISTORY NONE FAMILY HISTORY NO FAMILY HISTORY DOCUMENTED. SOCIAL HISTORY GENERAL: TOBACCO USE ARE YOU A:NONSMOKER LEARNING BARRIERS / SPECIAL NEEDS ORIENTED TO PLAN OF CARE: PATIENT, PAIN MANAGEMENT PATIENT, ORIENTED TO PLAN OF CARE: PATIENT, PAIN MANAGEMENT PATIENT. NEW PATIENT PAIN DIARY TODAY'S VISITNOTES FROM 0-10, WHAT LEVEL IS YOUR PAIN TODAY?0 PAIN CLINIC PFS, CLERGY, PUBLIC HEALTH REFERRALS PFS REFERRAL NEEDED?NO CLERGY REFERRAL NEEDED?NO PUBLIC HEALTH REFERRAL NEEDED?NO WAS THE PROVIDER NOTIFIED OF ANY PERTINENT INFO?NO PFS REFERRAL NEEDED?NO CLERGY REFERRAL NEEDED?NO PUBLIC HEALTH REFERRAL NEEDED?NO WAS THE PROVIDER NOTIFIED OF ANY PERTINENT INFO?NO HOSPITALIZATION/MAJOR DIAGNOSTIC PROCEDURE NO HOSPITALIZATION HISTORY. REVIEW OF SYSTEMS CONSTITUTIONAL: ANY CHANGE IN YOUR MEDICAL CONDITION? NO . CHILLS NO . FEVER NO . INFECTION: DO YOU HAVE NEW INFECTIONS? NO . DO YOU HAVE HISTORY OF MRSA? NO . MUSCULOSKELETAL: ANY NEW PATTERNS OF PAIN OR NUMBNESS? PT STATES THAT HE HAD TRIGGER POINTS AND PAIN HAS INTENSIFIED, PT STATES THAT HE HAS NUMBNESS AND TINGLING DOWN BOTH LEGS, PT STATES THAT HE EVEN HAS TENDERNESS TO TOUCH ON BOTH LEGS. . GASTROENTEROLOGY: ANY NEW CHANGE IN BOWEL CONTROL? NO . GENITOURINARY: ANY NEW CHANGE IN BLADDER CONTROL? NO . IS THERE A CHANCE YOU COULD BE ? NO . HEMATOLOGY/LYMPH: DO YOU TAKE ANY BLOOD THINNERS? (FOR EXAMPLE- COUMADIN, PLAVIX, AGGRENOX, PLATEL, PRADAXA, OR XARELTO) NO . WHEN WAS YOUR LAST DOSE? DATE: TIME: . NEUROLOGY: HAVE YOU FALLEN IN THE PAST 6 MONTHS? NO . ANY NEW EXTREMITY NUMBNESS OR WEAKNESS? NO . CARDIOLOGY: DO YOU HAVE A PACEMAKER OR DEFIBRILLATOR? NO . RESPIRATORY: HAVE YOU BEEN SICK IN THE PAST WEEK? NO . FEVER NO . FLU LIKE SYMPTOMS? NO . COUGH NO . INTEGUMENTARY: DO YOU HAVE ANY RASHES OR OPEN SORES? NO . ALLERGIC/IMMUNO: ARE YOU ALLERGIC TO SHELLFISH OR IV DYE? NO . ANY NEW ALLERGIES? NO . PSYCHIATRIC: DO YOU HAVE THOUGHTS OF HURTING YOURSELF OR SOMEONE ELSE? NO . ARE YOU ABUSED, NEGLECTED, OR IN AN UNSAFE ENVIRONMENT? NO . ENDOCRINOLOGY: ARE YOU DIABETIC? NO . OTHER: DO YOU NEED ANY PRESCRIPTIONS? NO . IF YES, PLEASE LIST: ____ . ANY NEW PROBLEMS WITH YOUR MEDICATIONS? NO . WHEN DID YOU LAST EAT? THIS MORNING . WHEN DID YOU LAST DRINK? THIS AFTERNOON . WHAT DID YOU LAST DRINK? WATER . NAME OF PERSON DRIVING YOU HOME? LINZI . DO YOU HAVE ANY OTHER QUESTIONS OR CONCERNS PT STATES THAT HE IS A CURRENT SMOKER, REFUSING ANY SMOKING CESSATION COUSELING AT THIS TIME. PT STATES THAT HE HAD TRIGGER POINTS IN LOW BACK 2 WEEKS AGO, PT STATES THAT PAIN RETURNED 4 HOURS AFTER PROCEDURE AND PAIN HAS BEEN WORSE THAN EVER. . REVIEWED BY: PROVIDER: RENETTA SHETH MD . VITAL SIGNS WT 257.8 LBS, HT 71 1/2, BMI 35.45 INDEX, BP 143/84 MM HG, HR 61 /MIN, RR 16 /MIN, TEMP 98.9 F, OXYGEN SAT % 99%, NA INITIALS SC 16:20. EXAMINATION : PATIENT IS ALERT O X 3 AND COOPERATIVE. THERE IS TENDERNESS IN THE SACRO ILIAC AREA. PATIENT IS ABLE TO FLEX HIS BACK TO 90 DEGREES AND EXTEND HIS BACK TO 10 DEGREES. PATIENT'S LEFT LEG IS WEAKER AT FLEXION AND EXTENSION. MRI OF THE LUMBAR SPINE DONE ON 08-23-2016 SHOWS A LARGE CENTRAL DISC PROTRUSION AT L5-S1 AND A TINY CENTRAL DISC PROTRUSION AT L4-L5. ASSESSMENTS SACROILIITIS, NOT ELSEWHERE CLASSIFIED - M46.1 (PRIMARY) MYALGIA - M79.1 INTERVERTEBRAL DISC DISORDERS WITH RADICULOPATHY, LUMBAR REGION - M51.16 INTERVERTEBRAL DISC DISORDERS WITH RADICULOPATHY, LUMBOSACRAL REGION - M51.17 TREATMENT SACROILIITIS, NOT ELSEWHERE CLASSIFIED NOTES: WE DISCUSSED SEVERAL ISSUES WITH MR. LIGHT'S PAIN MANAGEMENT CASE. AT THIS TIME THE PATIENT WILL CONTINUE ON THE SAME MEDICATION REGIMEN BEFORE AND WILL RECEIVE REFILLS OF THE NEEDED MEDICATIONS TODAY, WITH THE EXCEPTION OF GABAPENTIN, PATIENT WILL NOW TAKE THAT MEDICATION 3 TIMES A DAY FOR NEUROPATHIC PAIN. AFTER EXAMINING THE PATIENT, HE IS A GOOD CANDIDATE FOR A SIJ INJECTION, WE DISCUSSED THE RISK, BENEFITS, AND ALTERNATIVES AND THE PATIENT WOULD LIKE TO PROCEED. PATIENT WILL BE BOOKED PENDING APPROVAL. I DISCUSSED WITH THE PATIENT DUE TO THE NUMBNESS DOWN THE LEGS HE IS EXPERIENCING I WILL REFER HIM TO DR. CARBONE FOR AN EVALUATION AND PATIENT ACKNOWLEDGED THAT HE WOULD LIKE TO BE REFERRED. , INSTRUCTIONS WERE GIVEN, QUESTIONS WERE ANSWERED, PATIENT REPORTS UNDERSTANDING AND AGREES WITH THE PLAN. I, KARRI MORFIN, DOCUMENTED THE ABOVE INFORMATION ACTING A SCRIBE FOR DR. SHETH. I HAVE REVIEWED THE ABOVE DOCUMENT, WRITTEN BY KARRI MORFIN SCRIBKamar AND I VERIFY THAT IT IS ACCURATE. MYALGIA REFILL GABAPENTIN CAPSULE, 300 MG, 1 CAPSULE, ORALLY FOR PAIN, THREE TIMES DAILY, 30 DAY(S), 90, REFILLS 1 REFILL TIZANIDINE HCL CAPSULE, 4 MG, 1 TABLET NEEDED, ORALLY, BEFORE BEDTIME CAN REPEAT IN 4 HRS MDD2, 30 DAY(S), 60, REFILLS 1 REFILL CYMBALTA CAPSULE DELAYED RELEASE PARTICLES, 30 MG, 1 CAPSULE, ORALLY WITH FOOD, TWICE A DAY FOR PAIN, 30 DAY(S), 60, REFILLS 1 OTHERS REFILL IBUPROFEN TABLET, 800 MG, 1 TABLET, ORALLY WITH FOOD, THREE TIMES A DAY NEEDED FOR PAIN, 30 DAY(S), 60, REFILLS 1 PREVENTIVE MEDICINE PAIN CLINIC TEACHING: PROCEDURE TEACHING SIJ HANDOUT GIVEN AND REVIEWED WITH PATIENT. PROCEDURE CODES FA211 ESTABILISHED PATIENT [facility] FACILITY CHARGE G8730 PAIN ASSESS POS TOOL F/U PLAN DOC G8427 DOC MEDS VERIFIED W/PT OR RE DISPOSITION & COMMUNICATION FOLLOW UP SIJ PENDING APPROVAL ELECTRONICALLY SIGNED BY RENETTA SHETH MD ON 01/17/2017 AT 10:49 AM EDT DISCLAIMER : THIS IS A VISIT SUMMARY EXTRACTED FROM THE [employer] CHART. IT IS NOT A COPY OF THE [employer] PROGRESS NOTE. MIKED
== END ==
LOC: M PAIN 16:00
PROVIDERS: ATTEND Anesthesiology
DX: Z09 Encounter for follow-up examination after completed treatment for conditions other than malignant neoplasm (principal); G89.29 Other chronic pain; M46.1 Sacroiliitis, not elsewhere classified; M79.1 Myalgia; M51.16 Intervertebral disc disorders with radiculopathy, lumbar region; M51.17 Intervertebral disc disorders with radiculopathy, lumbosacral region; Z79.1 Long term (current) use of non-steroidal anti-inflammatories (NSAID); Z79.899 Other long term (current) drug therapy

== ENCOUNTER → 2017-01-18 | Outpatient (CLI) | payer MEDICAID ==
[~2017-01-18] MED LIST changes: +BUPIVACAINE HCL 0.25% 30 ML VIAL As Ordered ONE; +ISOVUE-M 300 61% 15ML VIAL (Q9967) As Ordered ONE; +LIDOCAINE 1% SDV INJ 30 ML VIAL As Ordered ONE; +TRIAMCINOLONE ACETONIDE SUSP 40 MG/ML VIAL (J3301) As Ordered ONE; +diazePAM 5 MG TAB As Ordered ONE; +oxyCODONE 5MG TAB As Ordered ONE
--- NOTE | 2017-01-18 14:02 | REP ---
SI JOINT SERIES: Six views. HISTORY: SI joint injection for pain. 44 seconds of fluoroscopy time is reported. FINDINGS: A sequence of six fluoroscopically obtained last image hold spot radiographs of the SI joints document various needle positions and contrast injections associated with SI joint injection procedure. Signed by Michele Galicia MD 01/18/2017 06:05 P
--- NOTE | 2017-01-23 23:27 | ECWPNPC ---
PATIENT NAME: GAVI LIGHT : 1990 GENDER: MALE VISIT DATE: 01/18/2017 DISCHARGE DATE: 01/18/17 1214 VISIT LOCKED DATE TIME: PHYSICIAN: RENETTA SHETH PHYSICIAN PAGER NO: [phone] RESOURCE: RENETTA SHETH REASON FOR APPOINTMENT 1. LUISA SIJ HISTORY OF PRESENT ILLNESS HISTORY OF PRESENT ILLNESS: PAIN THE PATIENT DESCRIBES THE PAIN... FALL RISK SCREENING: SCREENING :NO FALLS IN THE PAST YEAR CURRENT MEDICATIONS TAKING IBUPROFEN 800 MG TABLET 1 TABLET ORALLY WITH FOOD THREE TIMES A DAY NEEDED FOR PAIN, NOTES: 1999 TAKING GABAPENTIN 300 MG CAPSULE 1 CAPSULE ORALLY FOR PAIN THREE TIMES DAILY, NOTES: 01/17/172199 TAKING TIZANIDINE HCL 4 MG CAPSULE 1 TABLET NEEDED ORALLY BEFORE BEDTIME CAN REPEAT IN 4 HRS MDD2, NOTES: 01/17/17 220 TAKING CYMBALTA 30 MG CAPSULE DELAYED RELEASE PARTICLES 2 CAPSULES ORALLY WITH FOOD ONCE A DAY, NOTES: 01/18/17 0700 NOT-TAKING HYDROCODONE-ACETAMINOPHEN 7.5-325 MG TABLET 1 TABLET NEEDED ORALLY FOR PAIN EVERY 6 HRS NEEDED MDD4, NOTES: 10-08-16 1030 NOT-TAKING METHOCARBAMOL 750 MG TABLET 1-2 TABLET ORALLY EVERY 8 HRS FOR MUSCLE SPASM NOT-TAKING TYLENOL 325 MG TABLET 1 TABLET NEEDED ORALLY EVERY 6 HRS MEDICATION LIST REVIEWED AND RECONCILED WITH THE PATIENT PAST MEDICAL HISTORY BACK PAIN ALLERGIES N.K.D.A. SURGICAL HISTORY WISDOM TEETH EXTRACTED 03/2016 SOCIAL HISTORY GENERAL: PAIN CLINIC PFS, CLERGY, PUBLIC HEALTH REFERRALS CLERGY REFERRAL NEEDED?NO WAS THE PROVIDER NOTIFIED OF ANY PERTINENT INFO?NO PFS REFERRAL NEEDED?NO PUBLIC HEALTH REFERRAL NEEDED?NO PATIENT: ____. HOSPITALIZATION/MAJOR DIAGNOSTIC PROCEDURE DENIES PAST HOSPITALIZATION REVIEW OF SYSTEMS CONSTITUTIONAL: ANY CHANGE IN YOUR MEDICAL CONDITION? NO . CHILLS NO . FEVER NO . INFECTION: DO YOU HAVE NEW INFECTIONS? NO . DO YOU HAVE HISTORY OF MRSA? NO . MUSCULOSKELETAL: ANY NEW PATTERNS OF PAIN OR NUMBNESS? NO . GASTROENTEROLOGY: ANY NEW CHANGE IN BOWEL CONTROL? NO . GENITOURINARY: ANY NEW CHANGE IN BLADDER CONTROL? NO . IS THERE A CHANCE YOU COULD BE ? NO . HEMATOLOGY/LYMPH: DO YOU TAKE ANY BLOOD THINNERS? (FOR EXAMPLE- COUMADIN, PLAVIX, AGGRENOX, PLATEL, PRADAXA, OR XARELTO) NO . WHEN WAS YOUR LAST DOSE? DATE: TIME: . NEUROLOGY: HAVE YOU FALLEN IN THE PAST 6 MONTHS? NO . ANY NEW EXTREMITY NUMBNESS OR WEAKNESS? NO . CARDIOLOGY: DO YOU HAVE A PACEMAKER OR DEFIBRILLATOR? NO . RESPIRATORY: HAVE YOU BEEN SICK IN THE PAST WEEK? NO . FEVER NO . FLU LIKE SYMPTOMS? NO . COUGH NO . INTEGUMENTARY: DO YOU HAVE ANY RASHES OR OPEN SORES? NO . ALLERGIC/IMMUNO: ARE YOU ALLERGIC TO SHELLFISH OR IV DYE? NO . ANY NEW ALLERGIES? NO . PSYCHIATRIC: DO YOU HAVE THOUGHTS OF HURTING YOURSELF OR SOMEONE ELSE? NO . ARE YOU ABUSED, NEGLECTED, OR IN AN UNSAFE ENVIRONMENT? NO . ENDOCRINOLOGY: ARE YOU DIABETIC? NO . OTHER: DO YOU NEED ANY PRESCRIPTIONS? NO . IF YES, PLEASE LIST: ____ . ANY NEW PROBLEMS WITH YOUR MEDICATIONS? NO . WHEN DID YOU LAST EAT? LAST NIGHT . WHEN DID YOU LAST DRINK? THIS MORNING . WHAT DID YOU LAST DRINK? WATER . NAME OF PERSON DRIVING YOU HOME? LINZI . DO YOU HAVE ANY OTHER QUESTIONS OR CONCERNS NO . REVIEWED BY: PROVIDER: . VITAL SIGNS WT 257.8 LBS, HT 71 1/2, BMI 35.45 INDEX, BP 133/66 MM HG, HR 92 /MIN, RR 16 /MIN, TEMP 98.9 F, OXYGEN SAT % 98%, NA INITIALS SC 10:25, REVIEWED BY: LS. ASSESSMENTS SACROILIITIS, NOT ELSEWHERE CLASSIFIED - M46.1 (PRIMARY) PROCEDURES PN SI PRE PROCEDURE DIAGNOSIS SACROILIITIS, SACROILIAC JOINT DYSFUNCTION POST PROCEDURE DIAGNOSIS SACROILIITIS, SACROILIAC JOINT DYSFUNCTION PROCEDURE BILATERAL SACROILIAC JOINT BLOCK SURGEON DR. RENETTA SHETH BUILDING CONSTRUCTION ENGINEER NONE ANESTHESIA LOCAL PRE PROCEDURE NOTE PATIENT WITH HISTORY OF CHRONIC LOW BACK PAIN. I EVALUATED THE PATIENT AND REVIEWED THE CHART. I WENT OVER THE RISKS, ALTERNATIVES, AND BENEFITS ASSOCIATED WITH THIS PROCEDURE. THE PATIENT WOULD LIKE TO PROCEED AND GAVE CONSENT TO PERFORM THE PROCEDURE. THE PATIENT DENIES UNEXPLAINABLE WEIGHT LOSS, FEVER, CHILLS, OR NEW CHANGES IN URINARY OR BOWEL CONTROL DESCRIPTION OF PROCEDURE THE PATIENT WAS BROUGHT TO THE PROCEDURE ROOM AND PLACED IN THE PRONE POSITION. THE LUMBOSACRAL AREA WAS CLEANED WITH CHLORAPREP SOLUTION AND DRAPED ASEPTICALLY. THE PROCEDURE WAS DONE UNDER STERILE CONDITIONS. I CHECKED LATERALITY AND THE LEVEL WHERE THE PROCEDURE WAS GOING TO BE PERFORMED WITH THE PATIENT AND THE SUPPORTING STAFF AT THE MOMENT OF THE TIME OUT IN THE PROCEDURE ROOM. UNDER FLUOROSCOPIC GUIDANCE, TARGET POINT WAS SELECTED AT THE LOWER BORDER OF THE RIGHT AND LEFT SACROILIAC JOINT. TARGET POINT WAS SELECTED AFTER MEDIAL ROTATION AND TILT OF THE MAGNIFIER OF THE C-ARM. LIDOCAINE WAS USED TO NUMB THE SKIN AND SUBCUTANEOUS TISSUE BELOW IT. A SPINAL NEEDLE, 22-GAUGE, WAS ADVANCED UNDER FLUOROSCOPIC GUIDANCE AND FOLLOWING PATIENT FEEDBACK UNTIL THE TARGET AREA WAS TOUCHED. THE POSITION OF THE NEEDLE WAS VERIFIED WITH AP AND LATERAL VIEWS. AFTER PROPER POSITION OF THE NEEDLE WAS ACHIEVED, ISOVUE M DYE 30%, 0.25 ML, WAS INJECTED SHOWING SPREAD OF THE DYE. THEN, A SOLUTION OF 20 MG OF KENALOG WAS INJECTED IN RIGHT JOINT WITH 3 ML OF BUPIVACAINE 0.125%. THERE WAS NO EVIDENCE OF BLOOD, PARESTHESIA OR CEREBROSPINAL FLUID DURING THE PROCEDURE. THE PATIENT WAS SENT TO THE RECOVERY ROOM. THE PATIENT WAS MOVING THE EXTREMITIES AND DOING WELL. THERE WAS NO COMPLICATION DURING THE PROCEDURE. FLUOROSCOPY TIME WAS 44 SECONDS POST PROCEDURE NOTE THE PATIENT WILL BE SEEN IN A FOLLOW UP IN THE NEXT FEW WEEKS. INSTRUCTIONS WERE GIVEN, QUESTIONS WERE ANSWERED, AND THE PATIENT EXPRESSED UNDERSTANDING AND AGREED WITH THE PLAN. I, FRANCA HENDRICKS, DOCUMENTED THE ABOVE INFORMATION ACTING A SCRIBE FOR DR. SHETH. I, DR. SHETH, HAVE REVIEWED THE ABOVE DOCUMENT, SCRIBED BY FRANCA HENDRICKS, AND I VERIFY THAT IT IS ACCURATE DIAGNOSTIC IMAGING [facility] FLUORO GUIDANCE (PAIN)[id number] PROCEDURE CODES 55944 INJECT SACROILIAC JOINT 6045F RADXPS IN END [id number] PXD DISPOSITION & COMMUNICATION FOLLOW UP 3 WEEKS ELECTRONICALLY SIGNED BY RENETTA SHETH MD ON 01/23/2017 AT 09:11 PM EDT DISCLAIMER : THIS IS A VISIT SUMMARY EXTRACTED FROM THE [employer] CHART. IT IS NOT A COPY OF THE [employer] PROGRESS NOTE. MTDD
== END ==
LOC: M PAIN 10:20
PROVIDERS: ATTEND Anesthesiology
DX: G89.29 Other chronic pain (principal); M46.1 Sacroiliitis, not elsewhere classified; Z79.1 Long term (current) use of non-steroidal anti-inflammatories (NSAID); Z79.899 Other long term (current) drug therapy
CPT/HCPCS: G0260; J3301; Q9967

== ENCOUNTER → 2017-02-02 | Outpatient (CLI) | payer MEDICAID ==
[~2017-02-02] MED LIST changes: -BUPIVACAINE HCL 0.25% 30 ML VIAL As Ordered ONE; -ISOVUE-M 300 61% 15ML VIAL (Q9967) As Ordered ONE; -LIDOCAINE 1% SDV INJ 30 ML VIAL As Ordered ONE; -TRIAMCINOLONE ACETONIDE SUSP 40 MG/ML VIAL (J3301) As Ordered ONE; -diazePAM 5 MG TAB As Ordered ONE; -oxyCODONE 5MG TAB As Ordered ONE
== END ==
LOC: M PAIN 14:45
PROVIDERS: ATTEND Anesthesiology
DX: Z53.29 Procedure and treatment not carried out because of patient's decision for other reasons (principal)

== ENCOUNTER → 2017-02-14 | Outpatient (CLI) | payer MEDICAID ==
--- NOTE | 2017-02-22 01:21 | ECWPNPC ---
PATIENT NAME: GAVI LIGHT : 1990 GENDER: MALE VISIT DATE: 02/14/2017 DISCHARGE DATE: 02/14/17 1042 VISIT LOCKED DATE TIME: PHYSICIAN: RENETTA SHETH PHYSICIAN PAGER NO: [phone] RESOURCE: RENETTA SHETH REASON FOR APPOINTMENT 1. BACK PAIN HISTORY OF PRESENT ILLNESS HISTORY OF PRESENT ILLNESS: PAIN THE PATIENT DESCRIBES THE PAIN... 26 YEAR OLD MALE PATIENT WITH HISTORY OF CHRONIC LOW BACK PAIN. PATIENT DESCRIBES THE PAIN STABBING, THROBBING, SORE, AND HAVING IT ALL THE TIME WITH A PAIN SCORE OF 8.5-9/10. PATIENT RECEIVED A SACROILIAC JOINT INJECTION ON 01/18/17 AND STATES THAT IT DID NOT GIVE HIM ADEQUATE RELIEF FROM PAIN. CURRENTLY THE PAIN IS USING CYMBALTA, TIZANIDINE, AND GABAPENTIN BUT STATES THAT THE TIZANIDINE AND GABAPENTIN MAKE HIM VERY SLEEPY. PATIENT REPORTS IBUPROFEN GIVES HIM SEVERE STOMACH PAIN SO HE DOES NOT USE IT ANYMORE. MR. LIGHT STATES THAT IT IS DIFFICULT FOR HIM TO DO EVERYDAY THINGS DUE TO THE PAIN HE HAS IN HIS LOWER BACK. AT THIS TIME THE PATIENT STATES THE ONLY THING THAT AIDS IN PAIN RELIEF IS RELAXATION. PATIENT DENIES UNEXPLAINABLE WEIGHT LOSS, FEVER, CHILLS, NEW CHANGES ON HIS URINARY OR BOWEL CONTROL. FALL RISK SCREENING: SCREENING :NO FALLS IN THE PAST YEAR CURRENT MEDICATIONS TAKING IBUPROFEN 800 MG TABLET 1 TABLET ORALLY WITH FOOD THREE TIMES A DAY NEEDED FOR PAIN TAKING GABAPENTIN 300 MG CAPSULE 1 CAPSULE ORALLY FOR PAIN THREE TIMES DAILY TAKING TIZANIDINE HCL 4 MG CAPSULE 1 TABLET NEEDED ORALLY BEFORE BEDTIME CAN REPEAT IN 4 HRS MDD2 TAKING CYMBALTA 30 MG CAPSULE DELAYED RELEASE PARTICLES 2 CAPSULES ORALLY WITH FOOD TWICE A DAY NOT-TAKING HYDROCODONE-ACETAMINOPHEN 7.5-325 MG TABLET 1 TABLET NEEDED ORALLY FOR PAIN EVERY 6 HRS NEEDED MDD4, NOTES: 10-08-16 1030 NOT-TAKING METHOCARBAMOL 750 MG TABLET 1-2 TABLET ORALLY EVERY 8 HRS FOR MUSCLE SPASM NOT-TAKING TYLENOL 325 MG TABLET 1 TABLET NEEDED ORALLY EVERY 6 HRS MEDICATION LIST REVIEWED AND RECONCILED WITH THE PATIENT PAST MEDICAL HISTORY BACK PAIN ALLERGIES N.K.D.A. SURGICAL HISTORY WISDOM TEETH EXTRACTED 03/2016 FAMILY HISTORY NO FAMILY HISTORY DOCUMENTED. SOCIAL HISTORY GENERAL: PAIN CLINIC PFS, CLERGY, PUBLIC HEALTH REFERRALS CLERGY REFERRAL NEEDED?NO WAS THE PROVIDER NOTIFIED OF ANY PERTINENT INFO?NO PFS REFERRAL NEEDED?NO PUBLIC HEALTH REFERRAL NEEDED?NO PATIENT: ____. HOSPITALIZATION/MAJOR DIAGNOSTIC PROCEDURE NO HOSPITALIZATION HISTORY. REVIEW OF SYSTEMS CONSTITUTIONAL: ANY CHANGE IN YOUR MEDICAL CONDITION? NO . CHILLS NO . FEVER NO . INFECTION: DO YOU HAVE NEW INFECTIONS? NO . DO YOU HAVE HISTORY OF MRSA? NO . MUSCULOSKELETAL: ANY NEW PATTERNS OF PAIN OR NUMBNESS? NO . GASTROENTEROLOGY: ANY NEW CHANGE IN BOWEL CONTROL? NO . GENITOURINARY: ANY NEW CHANGE IN BLADDER CONTROL? NO . IS THERE A CHANCE YOU COULD BE ? NO . HEMATOLOGY/LYMPH: DO YOU TAKE ANY BLOOD THINNERS? (FOR EXAMPLE- COUMADIN, PLAVIX, AGGRENOX, PLATEL, PRADAXA, OR XARELTO) NO . WHEN WAS YOUR LAST DOSE? DATE: TIME: . NEUROLOGY: HAVE YOU FALLEN IN THE PAST 6 MONTHS? NO . ANY NEW EXTREMITY NUMBNESS OR WEAKNESS? NO . CARDIOLOGY: DO YOU HAVE A PACEMAKER OR DEFIBRILLATOR? NO . RESPIRATORY: HAVE YOU BEEN SICK IN THE PAST WEEK? NO . FEVER NO . FLU LIKE SYMPTOMS? NO . COUGH NO . INTEGUMENTARY: DO YOU HAVE ANY RASHES OR OPEN SORES? NO . ALLERGIC/IMMUNO: ARE YOU ALLERGIC TO SHELLFISH OR IV DYE? NO . ANY NEW ALLERGIES? NO . PSYCHIATRIC: DO YOU HAVE THOUGHTS OF HURTING YOURSELF OR SOMEONE ELSE? NO . ARE YOU ABUSED, NEGLECTED, OR IN AN UNSAFE ENVIRONMENT? NO . ENDOCRINOLOGY: ARE YOU DIABETIC? NO . OTHER: DO YOU NEED ANY PRESCRIPTIONS? NO . IF YES, PLEASE LIST: ____ . ANY NEW PROBLEMS WITH YOUR MEDICATIONS? NO . WHEN DID YOU LAST EAT? ____ . WHEN DID YOU LAST DRINK? ____ . WHAT DID YOU LAST DRINK? ____ . NAME OF PERSON DRIVING YOU HOME? ____ . DO YOU HAVE ANY OTHER QUESTIONS OR CONCERNS CAN I USE A TENS UNIT?? DCS? . REVIEWED BY: PROVIDER: RENETTA SHETH MD . VITAL SIGNS WT 245.6 LBS, HT 71 1/2, BMI 33.77 INDEX, BP 133/64 MM HG, HR 65 /MIN, RR 16 /MIN, TEMP 98.9 F, OXYGEN SAT % 98%, NA INITIALS AW 1541, REVIEWED BY: NL. EXAMINATION : PATIENT IS ALERT O X 3 AND COOPERATIVE. THERE IS TENDERNESS IN THE SACRO ILIAC AREA. PATIENT IS ABLE TO FLEX HIS BACK TO 90 DEGREES AND EXTEND HIS BACK TO 10 DEGREES. PATIENT'S LEFT LEG IS WEAKER AT FLEXION AND EXTENSION. MRI OF THE LUMBAR SPINE DONE ON 08-23-2016 SHOWS A LARGE CENTRAL DISC PROTRUSION AT L5-S1 AND A TINY CENTRAL DISC PROTRUSION AT L4-L5. ASSESSMENTS INTERVERTEBRAL DISC DISORDERS WITH RADICULOPATHY, LUMBOSACRAL REGION - M51.17 (PRIMARY) MYALGIA - M79.1 TREATMENT INTERVERTEBRAL DISC DISORDERS WITH RADICULOPATHY, LUMBOSACRAL REGION NOTES: WE DISCUSSED SEVERAL ISSUES WITH MR. LIGHT'S PAIN MANAGEMENT CASE. AT THIS TIME THE PATIENT WILL USE GABAPENTIN FOR THE NEUROPATHIC PAIN AND TIZANIDINE FOR THE MUSCLE SPASMS AT NIGHT. PATIENT WILL USE CYMBALTA DURING THE DAY TO SEE IF IT WILL AID IN RELIEF. WE DISCUSSED THE POSSIBILITY OF HAVING A SURGICAL CONSULT BUT THE PATIENT STATES THAT IT IS NOT AN OPTION HE HAS A SMALL CHILD AND WOULD NOT BE ABLE TO RECOVER. WE ALSO DISCUSSED THE OPTION OF SEEING A NEUROLOGIST WHICH THE PATIENT STATES HE WOULD LIKE TO SEE DUE TO THE PAIN DOWN THE LEGS. WE ALSO DISCUSSED MOVING FORWARD WITH AN INJECTION. PATIENT HAS ALREADY HAD TWO EPIDURAL'S WITHIN 5 YEARS. PATIENT STATES THAT HE WOULD LIKE TO RELIEF DUE TO IT BEING DIFFICULT TO DO EVERYDAY ACTIVITIES. I WOULD ALSO LIKE THE PATIENT TO START PHYSICAL THERAPY IT MAY INCREASE HIS MOBILITY AND FUNCTIONALITY. PATIENT WILL RETURN TO THE CLINIC IN 3 WEEKS. INSTRUCTIONS WERE GIVEN, QUESTIONS WERE ANSWERED, PATIENT REPORTS UNDERSTANDING AND AGREES WITH THE PLAN. I, FRANCA HENDRICKS, DOCUMENTED THE ABOVE INFORMATION ACTING A SCRIBE FOR DR. SHETH. I HAVE REVIEWED THE ABOVE DOCUMENT, WRITTEN BY FARNCA PEDRAZA AND I VERIFY THAT IT IS ACCURATE. MYALGIA REFILL GABAPENTIN CAPSULE, 300 MG, 1 CAPSULE, ORALLY FOR PAIN, BEFORE BEDTIME FOR PAIN, 30 DAY(S), 30, REFILLS 1 REFILL TIZANIDINE HCL CAPSULE, 4 MG, 1 TABLET NEEDED, ORALLY, BEFORE BEDTIME CAN REPEAT IN 4 HRS MDD2, 30 DAY(S), 60, REFILLS 1 REFILL CYMBALTA CAPSULE DELAYED RELEASE PARTICLES, 60 MG, 2 CAPSULES, ORALLY, DAILY, 30 DAY(S), 60 CAPSULE, REFILLS 2 OTHERS START SKELAXIN TABLET, 800 MG, 1 TABLET, ORALLY NEEDED FOR SPASMS AND PAIN, Q 6 HRS FOR SPSMS AND PAIN MDD2, 30 DAY(S), 50, REFILLS 2 REFILL IBUPROFEN TABLET, 800 MG, 1 TABLET, ORALLY WITH FOOD, THREE TIMES A DAY NEEDED FOR PAIN, 30 DAY(S), 60, REFILLS 1 PREVENTIVE MEDICINE PAIN CLINIC TEACHING: MEDICATIONS NEW MEDICATION SKELAXIN DISCUSSED WITH PT. WRITTEN INFORMATION OFFERED AND DECLINED.. PROCEDURE CODES FA211 ESTABILISHED PATIENT [facility] FACILITY CHARGE G8427 DOC MEDS VERIFIED W/PT OR RE G8730 PAIN ASSESS POS TOOL F/U PLAN DOC DISPOSITION & COMMUNICATION FOLLOW UP 3 WEEKS ELECTRONICALLY SIGNED BY RENETTA SHETH MD ON 02/21/2017 AT 08:25 PM EDT DISCLAIMER : THIS IS A VISIT SUMMARY EXTRACTED FROM THE [employer] CHART. IT IS NOT A COPY OF THE [employer] PROGRESS NOTE. CORETTA
== END ==
LOC: M PAIN 15:50
PROVIDERS: ATTEND Anesthesiology
DX: G89.29 Other chronic pain (principal); M51.17 Intervertebral disc disorders with radiculopathy, lumbosacral region; M79.1 Myalgia; Z79.1 Long term (current) use of non-steroidal anti-inflammatories (NSAID); Z79.899 Other long term (current) drug therapy

== ENCOUNTER → 2018-07-13 | Outpatient (REF) | payer OTHER, MEDICAID ==
[2018-07-13 18:13] LABS: BASO # 0.1 10^3/uL (0.0-0.2); BASO % 0.6 % (0.0-1.0); EOS # 0.2 10^3/uL (0.0-0.50); EOS % 1.4 % (0.0-3.0); HEMATOCRIT 45.6 % (42.0-52.0); HEMOGLOBIN 15.6 g/dl (13.5-17.5); IMMATURE GRANULOCYTE % 0.4 % (0-3.0); LYMPH % 17.9 % (24.0-44.0); MEAN CORPUSCULAR HEMOGLOBIN 29.9 pg (27.0-33.0); MEAN CORPUSCULAR HGB CONC 34.2 g/dl (32.0-36.5); MEAN CORPUSCULAR VOLUME 87.5 fl (80.0-96.0); MONO # 0.6 10^3/uL (0.0-0.8); MONO % 5.8 % (0.0-5.0); NEUTROPHILS # 8.2 10^3/uL (1.8-7.7); NEUTROPHILS % 73.9 % (36.0-66.0); PLATELET COUNT, AUTOMATED 303 10^3/uL (150-450); RED BLOOD COUNT 5.21 10^6/uL (4.30-6.10); RED CELL DISTRIBUTION WIDTH 12.4 % (11.5-14.5); WHITE BLOOD COUNT 11.1 10^3/uL (4.0-10.0)
[2018-07-13 18:23] LABS: ALBUMIN 4.3 GM/DL (3.2-5.2); ALBUMIN/GLOBULIN RATIO 1.39 (1.00-1.93); ALKALINE PHOSPHATASE 99 U/L (45-117); ALT/SGPT 27 U/L (12-78); ANION GAP 9 MEQ/L (8-16); AST/SGOT 21 U/L (7-37); BILIRUBIN,TOTAL 0.4 MG/DL (0.2-1.0); BLOOD UREA NITROGEN 10 MG/DL (7-18); CARBON DIOXIDE LEVEL 25 MEQ/L (21-32); CHLORIDE LEVEL 109 MEQ/L (98-107); CHOLESTEROL LEVEL 193 MG/DL (<200); CHOLESTEROL RISK RATIO 5.361 (<5); CREATININE FOR GFR 0.94 MG/DL (0.70-1.30); GLOMERULAR FILTRATION RATE > 60.0 (>60); GLUCOSE, FASTING 97 MG/DL (70-100); HDL CHOLESTEROL 36 MG/DL (>40); LDL CHOLESTEROL 129 MG/DL (<100); NON-HDL-C 157 MG/DL; POTASSIUM SERUM 3.9 MEQ/L (3.5-5.1); SODIUM LEVEL 143 MEQ/L (136-145); TOTAL PROTEIN 7.4 GM/DL (6.4-8.2); TRIGLYCERIDES LEVEL 140 MG/DL (<150)
[2018-07-14 10:19] LABS: HEPATITIS C VIRUS ABY INDEX 0.1 INDEX (<0.8)
[2018-07-14 11:50] LABS: HIV 1&2 SCREEN CENTAUR NEGATIVE (NEGATIVE)
== END ==
LOC: M SFHCCAPE 07:07
DX: K92.1 Melena (principal); Z13.6 Encounter for screening for cardiovascular disorders; Z11.59 Encounter for screening for other viral diseases; K21.9 Gastro-esophageal reflux disease without esophagitis; Z11.4 Encounter for screening for human immunodeficiency virus [HIV]; R03.0 Elevated blood-pressure reading, without diagnosis of hypertension